=== PATIENT | male | born 1955 | race Caucasian/White ===

== ENCOUNTER → 2018-05-29 09:45 | Outpatient (REF) | payer BC, SELFPAY | LOC: LAB 09:45 | PROVIDERS: Visit Provider Emergency Medicine | DX: J02.9 Acute pharyngitis, unspecified (principal) ==

== ENCOUNTER → 2020-05-03 11:06 | Outpatient (CLI) | payer OTHER, SELFPAY ==
[2020-05-03 12:02] LABS: Chloride 102 mmol/L (98-107)
[2020-05-03 12:03] LABS: Sodium 141 mmol/L (136-145)
[2020-05-03 12:05] LABS: Alanine Aminotransferase 43 U/L (12-78); Aspartate Amino Transferase 36 U/L (17-59); Blood Urea Nitrogen 14 mg/dl (9-20); Estimated Glomerular Filt Rate 75 ml/min (>60); GFR (African American) 90 ML/MIN (>60)
[2020-05-03 12:06] LABS: Albumin Level 4.5 g/dl (3.5-5.0); Albumin/Globulin Ratio 1.8 (1.1-1.8); Alkaline Phosphatase 69 U/L (38-126); Bilirubin,Total 1.7 mg/dl (0.2-1.3); Calcium 9.9 mg/dl (8.4-10.2); Carbon Dioxide 29 mmol/L (22.0-30.0); Globulin 2.5 g/dL (1.3-3.2); Glucose 128 mg/dl (74-100); Magnesium 1.9 mg/dl (1.6-2.3)
== END ==
PROVIDERS: Visit Provider Physician Assistant
DX: I10 Essential (primary) hypertension (principal)
CPT/HCPCS: 36415; 80053; 83735

== ENCOUNTER 2021-05-02 10:32 | Emergency (ER) | payer OTHER, SELFPAY ==
[2021-05-02 11:20] VITALS: BP 188/93; PULSE 72; RESP 19; TEMP 36.8; O2SAT 100; BMI 40.1
--- NOTE | 2021-05-02 11:45 | HMH.EDUTC ---
[facility] [place]ression: Encounter for laboratory testing for COVID-19 virus Disposition: Home, Self-Care Condition on Discharge: Good Instructions: DI for COVID-19 (Suspected or Confirmed ), Coronavirus Disease 2019, Preventing the Spread of Coronavirus Discharge Instructions Additional Instructions: *Monitor Temp, Over the counter Motrin or Tylenol as directed/as needed Tylenol every 4 hours and Motrin every 6 hours (as long as your family doctor has told you that you can take it) for fever or pain. and straight to ER if unable to lower temp less than 101.0 after medication given *Flonase 2 sprays in each nostril daily but be aware that it may take 2-3 days before you notice improvement Follow up IMMEDIATELY for new or worsening symptoms or no Noticeable improvement over the next 48-72 hours. 911 for difficulty breathing or swallowing You were tested for today for COVID19 your test result should be back in the next 24-48 hours, you may call to the [facility] to see if your test results are back in the next 48 hours [phone] [facility] hours are 9am-9pm You was given a handout with instructions for Self Quarantine and Self isolation for while you wait on test results and what to do if they are positive If you are positive the Health Dept will be contacting you also Make sure to take your Vitamins Vit. C Vit D and Zinc if you can take them Prescriptions: Fluticasone Propionate [Flonase 50mcg nasal spray 16gm] 1 spr NS DAILY #1 ml Transmission Status: Pending to [id number] Referrals: Provider,Referral, [Primary Care Provider] - As needed Time of Disposition: 11:47 Medical Decision Making - Nick Inquiry Pt receiving controlled substance: No Nick was queried for this patient: No Vital Signs: 05/02/21 11:20 Temperature 98.3 F Temperature Source Oral Pulse Rate [Right Brachial] 72 Respiratory Rate 19 Blood Pressure [Right Arm] 188/93 H Blood Pressure Mean [Right Arm] 124 Blood Pressure Source [Right Arm] Automatic Cuff Blood Pressure Position [Right Arm] Sitting 02 Sat by Pulse Oximetry 100 Oxygen Delivery Method Room Air Orders (Tests/Meds): ORDERS Category Date Time Status Covid-19 Nasal PCR ([facility]) Routine Lab 05/02/21 11:23 Received Medical Decision Narrative: Patient states that he has HTN 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 by RN): PATIENT STATES HE WOKE UP AROUND 0300 THIS MORNING FEELING BAD AND HAD A LOW-GRADE FEVER. REQUESTING COVID TEST. NO KNOWN EXPOSURE HEENT Symptoms (Recalled from RN notes): No Resp Symptoms (Recalled from RN notes): No Skin Symptoms (Recalled from RN notes): No MS Symptoms (Recalled from RN notes): No Functional Status (Recalled from RN notes): WNL - History of Present Illness Provider Complaint: Patient states that he hasnt been around anyone that he is aware of with COVID State that he woke up this morning having low grade fever and bodyaches States that he is feeling a little better now but wanted to come in and get tested for COVID due to symptoms - Related Data Home Medications Medication Instructions Recorded Confirmed amlodipine 10 mg tablet PO 60 Days #60 tab 05/28/18 10/28/19 losartan 100 mg tablet PO 90 Days #90 tab 05/28/18 10/28/19 aspirin 81 mg chewable tablet 81 mg PO DAILY 10/06/18 10/28/19 coenzyme Q10 10 mg capsule 10 mg PO TID 12/09/18 10/28/19 metoprolol tartrate 50 mg tablet PO BID 90 Days #270 tab 10/28/19 10/28/19 Previous Rx's Medication Instructions Recorded Fluticasone Propionate [Flonase 1 spr NS DAILY #1 ml 05/02/21 50mcg nasal spray 16gm] Allergies Allergy/AdvReac Type Severit
[2021-05-02 11:49] VITALS: BP 188/93; PULSE 72; RESP 19; TEMP 36.8; O2SAT 100
== END 2021-05-02 11:55 | disposition home or self-care (01) ==
PROVIDERS: Emergency Provider Nurse Practitioner
DX: Z20.822 Contact with and (suspected) exposure to COVID-19 (principal); I10 Essential (primary) hypertension; Z79.899 Other long term (current) drug therapy; I48.0 Paroxysmal atrial fibrillation
CPT/HCPCS: 99202; G0463; U0003

== ENCOUNTER 2021-10-01 10:01 | Emergency (ER) | payer MEDICARE, SELFPAY ==
[2021-10-01 11:41] VITALS: BP 155/91; PULSE 69; RESP 18; TEMP 36.8; O2SAT 97; BMI 39.9
--- NOTE | 2021-10-01 11:46 | HMH.EDUTC ---
[facility] [place] Clinical Impression: Viral syndrome, Bronchitis Disposition: Home, Self-Care Condition on Discharge: Good Instructions: Acute Bronchitis, DI for Acute Bronchitis, DI for Viral Syndrome, DI for COVID-19 (Suspected or Confirmed ), Preventing the Spread of Coronavirus Discharge Instructions Additional Instructions: Drink plenty of fluids. Take tylenol or ibuprofen for pain or fever. Take the medications as directed. Follow up with your regular doctor. GO TO THE ER FOR ANY WORSENING SYMPTOMS Quarantine until you know the results of your covid-19 test. Notify your school or workplace of your results and follow their instructions regarding return to work/school. The cough medication (promethazine dm) will make you drowsy, so don't drive or operate heavy machinery after taking it. Prescriptions: Promethazine/Dextromethorphan [Promethazine-Dm Syrup] 5 ml PO Q6HP PRN #240 ml PRN Reason: Cough Transmission Status: Received by [facility] methylPREDNISolone [Medrol] 4 mg PO DIRECTED 6 Days #21 packet Transmission Status: Received by [facility] Azithromycin [Z-Ken 250mg Tab*] 250 mg PO UD DOSE PK #6 tab Transmission Status: Received by [facility] Referrals: Provider,Referral, [Primary Care Provider] - Time of Disposition: 12:28 Medical Decision Making - Medical Records Medical records reviewed: No: I reviewed the patient's medical records. - Nick Inquiry Pt receiving controlled substance: No Vital Signs: 10/01/21 11:41 10/01/21 12:34 Temperature 98.3 F 98.3 F Temperature Source Oral Pulse Rate 69 Pulse Rate [Left] 69 Respiratory Rate 18 18 Blood Pressure 155/91 H Blood Pressure [Right Arm] 155/91 H Blood Pressure Mean [Right Arm] 112 02 Sat by Pulse Oximetry 97 - Lab Data Lab results reviewed: Yes: I reviewed the patient's lab results. Lab Results 10/01/21 11:44: Influenza Type A Ag Negative, Influenza Type B Ag Negative [facility] [place] - General Stated complaint: fever, cough Time Seen by Provider: 10/01/21 11:46 - History of Present Illness Provider Complaint: He states that the has felt bad for the past 2 days. He has been running a low grade fever and had a nonproductive cough. He denies any body aches. He denies any history of asthma, copd or other lung disease. He has been fully vaccinated against covid-19. He has had a flu shot also. - Related Data Home Medications Medication Instructions Recorded Confirmed amlodipine 10 mg tablet PO 60 Days #60 tab 05/28/18 10/28/19 losartan 100 mg tablet PO 90 Days #90 tab 05/28/18 10/28/19 aspirin 81 mg chewable tablet 81 mg PO DAILY 10/06/18 10/28/19 coenzyme Q10 10 mg capsule 10 mg PO TID 12/09/18 10/28/19 metoprolol tartrate 50 mg tablet PO BID 90 Days #270 tab 10/28/19 10/28/19 Previous Rx's Medication Instructions Recorded Fluticasone Propionate [Flonase 1 spr NS DAILY #1 ml 05/02/21 50mcg nasal spray 16gm] Azithromycin [Z-Ken 250mg Tab*] 250 mg PO UD DOSE PK #6 tab 10/01/21 Promethazine/Dextromethorphan 5 ml PO Q6HP PRN #240 ml 10/01/21 [Promethazine-Dm Syrup] methylPREDNISolone [Medrol] 4 mg PO DIRECTED 6 Days #21 10/01/21 packet Allergies Allergy/AdvReac Type Severity Reaction Status Date / Time No Known Allergies Allergy Verified 10/28/19 10:51 [facility] History - Hepatitis A Screen Attestation statement:: This patient has been screened for Hepatitis A risk factors. I have reviewed the patient's past medical history: Yes Medical History: Reports:: Atrial Fibrillation, Hypertension Other Surgeries: Yes: Appendectomy Amputation: No Fractures: No Comment: cardioversion - Social History Smoking Status: Never smoker Alcohol Intake: never Substance Use Type: denies use Occupational Status: other Housing: house Household Members: family Family Hx:: Hypertension, Diabetes, Coronary Artery Disease ROS Obtained: Yes All systems rev
[2021-10-01 12:34] VITALS: BP 155/91; PULSE 69; RESP 18; TEMP 36.8
[2021-10-01 19:04] LABS: UTC Influenza A Antigen Negative (Negative); UTC Influenza B Antigen Negative (Negative)
[2021-10-04 06:59] LABS: Strep Scrn Group A (Rapid) Negative (Negative)
== END 2021-10-01 12:36 | disposition home or self-care (01) ==
PROVIDERS: Emergency Provider Nurse Practitioner Family
DX: U07.1 COVID-19 (principal); J20.9 Acute bronchitis, unspecified; I48.0 Paroxysmal atrial fibrillation; I10 Essential (primary) hypertension
CPT/HCPCS: G0463; 87430; 87804; 99203; C9803; U0003; U0005

== ENCOUNTER 2021-10-15 08:59 | Emergency (ER) | payer MEDICARE, SELFPAY ==
[2021-10-15 09:12] VITALS: BP 161/96; PULSE 69; RESP 16; TEMP 36.9; O2SAT 97; BMI 40.1
--- NOTE | 2021-10-15 09:25 | HMH.EDUTC ---
[facility] [place] Disposition Clinical Impression: Pharyngitis Qualifiers: Pharyngitis/tonsillitis etiology: unspecified etiology Qualified Code(s): J02.9 - Acute pharyngitis, unspecified Disposition: Home, Self-Care Condition on Discharge: Good Instructions: Sore Throat, DI for Pharyngitis/Tonsillopharyngitis -- Adult Additional Instructions: Drink plenty of fluids. Take tylenol or ibuprofen for pain or fever. Take the medications as directed. Follow up with your regular doctor. GO TO THE ER FOR ANY WORSENING SYMPTOMS The cough medication (promethazine dm) will make you drowsy, so don't drive or operate heavy machinery after taking it. I prescribed it just in case you start having a cough that irritates your throat worse than it already is. Prescriptions: Promethazine/Dextromethorphan [Promethazine-Dm Syrup] 5 ml PO Q6HP PRN #240 ml PRN Reason: Cough Transmission Status: Received by [facility] Cefdinir [Omnicef 300mg Capsule] 300 mg PO BID #20 cap Transmission Status: Received by [facility] Triamcinolone Acetonide 1 applicatio TP TIDP PRN 7 Days #1 gm PRN Reason: Itching Transmission Status: Pending to [facility] Referrals: Provider,Referral, MD [Primary Care Provider] - Time of Disposition: 10:11 Medical Decision Making - Medical Records Medical records reviewed: No: I reviewed the patient's medical records. - Nick Inquiry Pt receiving controlled substance: No Vital Signs: 10/15/21 09:12 10/15/21 09:54 Temperature 98.5 F 98.5 F Temperature Source Oral Pulse Rate 69 Pulse Rate [Left] 69 Respiratory Rate 16 16 Blood Pressure 161/96 H Blood Pressure [Right Arm] 161/96 H Blood Pressure Mean [Right Arm] 117 02 Sat by Pulse Oximetry 97 - Lab Data Lab results reviewed: Yes: I reviewed the patient's lab results. Lab Results 10/15/21 09:17: Group A Strep Rapid Negative Orders (Tests/Meds): ED MEDICATIONS Discontinued Medications Generic Name Dose Route Start Last Admin Trade Name Freq PRN Reason Stop Dose Admin Ceftriaxone Sodium 1 gm 10/15/21 10:08 10/15/21 10:16 Ceftriaxone 1gm Vial IM 10/15/21 10:09 1 gm ONCE ONE Administration Lidocaine HCl 0 ml 10/15/21 10:08 10/15/21 10:15 Lidocaine 1% 5ml Pf Vial IM 10/15/21 10:09 2 ml ONCE ONE Administration Methylprednisolone Sodium Succinate 125 mg 10/15/21 10:08 10/15/21 10:15 Methylprednisolone Sod Succ 125mg Vial IM 10/15/21 10:09 125 mg ONCE ONE Administration ORDERS Category Date Time Status Covid-19 Nasal PCR ([facility]) Routine Lab 10/15/21 09:17 Received Strep Screen Confirmation Stat Micro 10/15/21 09:17 Received [facility] [place] HPI - General Stated complaint: possible strep Time Seen by Provider: 10/15/21 09:25 Mode of Arrival: Ambulatory Source of Information: Patient Limitations: No Limitations Description of Symptoms (Recalled from Triage Doc. by RN): pt c/o a sore throat and low grade fever since last night. HEENT Symptoms (Recalled from RN notes): Yes (sore throat) Resp Symptoms (Recalled from RN notes): No Skin Symptoms (Recalled from RN notes): No MS Symptoms (Recalled from RN notes): No Functional Status (Recalled from RN notes): wnl - History of Present Illness Provider Complaint: He states that for the past 2 days he has had a worsening sore throat. He was diagnosed with covid-19 on 10/01. He states that he did not get very sick with covid-19 and he was completely better before his current symptoms of sore throat started. He denies any shortness of breath or chest congestion. - Related Data Home Medications Medication Instructions Recorded Confirmed amlodipine 10 mg tablet PO 60 Days #60 tab 05/28/18 10/28/19 losartan 100 mg tablet PO 90 Days #90 tab 05/28/18 10/28/19 aspirin 81 mg chewable tablet 81 mg PO DAILY 10/06/18 10/28/19 coenzyme Q10 10 mg capsule 10 mg PO TID 12/09/18 10/28/19 metoprolol tartrate 50 mg tablet PO BID 9
[2021-10-15 09:49] LABS: Strep Scrn Group A (Rapid) Negative (Negative)
[2021-10-15 09:54] VITALS: BP 161/96; PULSE 69; RESP 16; TEMP 36.9
== END 2021-10-15 10:46 | disposition home or self-care (01) ==
PROVIDERS: Emergency Provider Nurse Practitioner Family
DX: U07.1 COVID-19 (principal); J02.9 Acute pharyngitis, unspecified; I10 Essential (primary) hypertension; I48.0 Paroxysmal atrial fibrillation
CPT/HCPCS: G0463; 87430; 96372; 99202; C9803; J0696; U0003; U0005

== ENCOUNTER 2022-05-02 17:28 | Emergency (ER) | payer MEDICARE, SELFPAY ==
--- NOTE | 2022-05-02 17:48 | XR_ITS ---
PROCEDURE INFORMATION: Exam: XR Left Ribs with PA Chest Exam date and time: 05/02/2022 5:50 PM Age: 66 years old Clinical indication: Injury or trauma; Fall; Rib area, left side; Blunt trauma TECHNIQUE: Imaging protocol: Radiologic exam of the Left ribs with PA chest. Views: 3 views COMPARISON: No relevant prior studies available. FINDINGS: Lungs: Pulmonary vessels do not appear congested. No acute pulmonary findings. No pulmonary consolidation. Lung volumes within normal limits. Pleural spaces: Unremarkable. No significant pleural effusion. No pneumothorax. Heart/Mediastinum: Upper normal sized cardiac silhouette. Bones/joints: Chronic appearing deformities of the left 3rd , 6th and 7th ribs, consistent with old healed fractures. Also some minimal deformities of 4th and 5th ribs which are likely old healed injuries. Tiny radiolucency through the tip of the left 10th rib which may be acute injury. Prominent multilevel degenerative disc disease and spondylosis. IMPRESSION: 1. Old healed injuries of left 3rd through 7th ribs. A small linear radiolucency through the tip of the left 10th rib which could be an acute fracture, correlate for point tenderness. 2. No acute cardiopulmonary findings. No consolidation, pleural effusion or pneumothorax. 3. Additional nonemergency and chronic findings as above.
[2022-05-02 17:50] VITALS: BP 141/90; PULSE 86; RESP 19; TEMP 36.9; O2SAT 97; BMI 40.6
--- NOTE | 2022-05-02 18:07 | HMH.EDUTC ---
[facility] [place] Disposition Clinical Impression: Closed rib fracture Qualifiers: Encounter type: initial encounter Rib fracture type: single rib Laterality: left Qualified Code(s): S22.32XA - Fracture of one rib, left side, initial encounter for closed fracture Disposition: Home, Self-Care Condition on Discharge: Good Instructions: DI for Rib Fracture Additional Instructions: follow up with pcp return or be seen in ed if symptoms worsen or do not improve rest Referrals: Provider,Referral, MD [Primary Care Provider] - Time of Disposition: 18:59 Medical Decision Making - Nick Inquiry Pt receiving controlled substance: No Vital Signs: 05/02/22 17:50 05/02/22 18:55 Temperature 98.4 F 98.4 F Temperature Source Oral Pulse Rate 86 Pulse Rate [Right Brachial] 86 Respiratory Rate 19 19 Blood Pressure 141/90 H Blood Pressure [Right Arm] 141/90 H Blood Pressure Mean [Right Arm] 107 Blood Pressure Source [Right Arm] Automatic Cuff Blood Pressure Position [Right Arm] Sitting 02 Sat by Pulse Oximetry 97 Oxygen Delivery Method Room Air [facility] [place] HPI - General Chief complaint: Urgent Treatment Center Stated complaint: AO05/02 fall rib pain Time Seen by Provider: 05/02/22 18:07 Mode of Arrival: Ambulatory Source of Information: Patient Limitations: No Limitations Description of Symptoms (Recalled from Triage Doc. by RN): PATIENT STATES HE FELL EARLIER TODAY AND C/O LEFT RIB PAIN HEENT Symptoms (Recalled from RN notes): No Resp Symptoms (Recalled from RN notes): No Skin Symptoms (Recalled from RN notes): No MS Symptoms (Recalled from RN notes): Yes Functional Status (Recalled from RN notes): WNL - History of Present Illness Provider Complaint: 66 yr old male presnets for left rib pain s/p fall. pt states he was putting up tobacco and slip and fell hittting rib area. states he finished and then put up hay but pain did not improve - Related Data Home Medications Medication Instructions Recorded Confirmed amlodipine 10 mg tablet PO 60 Days #60 tab 05/28/18 10/28/19 losartan 100 mg tablet PO 90 Days #90 tab 05/28/18 10/28/19 aspirin 81 mg chewable tablet 81 mg PO DAILY 10/06/18 10/28/19 coenzyme Q10 10 mg capsule 10 mg PO TID 12/09/18 10/28/19 metoprolol tartrate 50 mg tablet PO BID 90 Days #270 tab 10/28/19 10/28/19 Previous Rx's Medication Instructions Recorded Fluticasone Propionate [Flonase 1 spr NS DAILY #1 ml 05/02/21 50mcg nasal spray 16gm] Azithromycin [Z-Ken 250mg Tab*] 250 mg PO UD DOSE PK #6 tab 10/01/21 Promethazine/Dextromethorphan 5 ml PO Q6HP PRN #240 ml 10/01/21 [Promethazine-Dm Syrup] methylPREDNISolone [Medrol] 4 mg PO DIRECTED 6 Days #21 10/01/21 packet Cefdinir [Omnicef 300mg Capsule] 300 mg PO BID #20 cap 10/15/21 Promethazine/Dextromethorphan 5 ml PO Q6HP PRN #240 ml 10/15/21 [Promethazine-Dm Syrup] Triamcinolone Acetonide 1 applicatio TP TIDP PRN 7 Days #1 10/15/21 gm Allergies Allergy/AdvReac Type Severity Reaction Status Date / Time No Known Allergies Allergy Verified 10/28/19 10:51 - Worker's Comp Is this a Worker's Comp case?: No [facility] History - Hepatitis A Screen Attestation statement:: This patient has been screened for Hepatitis A risk factors. I have reviewed the patient's past medical history: Yes Medical History: Reports:: Atrial Fibrillation, Hypertension Other Surgeries: Yes: Appendectomy Amputation: No Fractures: No Comment: cardioversion - Social History Smoking Status: Never smoker Alcohol Intake: never Substance Use Type: denies use Occupational Status: other Housing: house Household Members: family Family Hx:: Hypertension, Diabetes, Coronary Artery Disease ROS Obtained: Yes Systems reviewed as appropriate & no additional complaints - Constitutional Constitutional: Reports system reviewed and no additional complaints, except as thuu - Eyes Eyes: Reports system reviewed and no additional complaints, except as Jaida bills
[2022-05-02 18:55] VITALS: BP 141/90; PULSE 86; RESP 19; TEMP 36.9; O2SAT 97
== END 2022-05-02 19:03 | disposition home or self-care (01) ==
PROVIDERS: Emergency Provider Nurse Practitioner Family
DX: S22.32XA Fracture of one rib, left side, initial encounter for closed fracture (principal); W19.XXXA Unspecified fall, initial encounter
CPT/HCPCS: 71101; 99212; G0463

== ENCOUNTER 2022-12-03 11:16 | Emergency (ER) | payer MEDICARE, SELFPAY ==
[2022-12-03 11:31] VITALS: BP 175/99; PULSE 75; RESP 18; TEMP 36.7; O2SAT 96; BMI 41.3
--- NOTE | 2022-12-03 12:02 | EXP.UTC ---
Discharge Plan Disposition Patient Disposition: Home, Self-Care Condition: Good Prescriptions Prescriptions: New cefdinir 300 mg capsule 300 mg PO BID Qty: 20 0RF No Action amlodipine 10 mg tablet PO 60 Days Qty: 60 losartan 100 mg tablet PO 90 Days Qty: 90 metoprolol tartrate 50 mg tablet PO BID 90 Days Qty: 270 aspirin 81 mg tablet,chewable 81 mg PO DAILY coenzyme Q10 [Co Q-10] 10 mg capsule 10 mg PO TID fluticasone propionate 120 SPR/BOT bottle 1 spr NS DAILY Qty: 1 0RF Rx Instructions: each nostril daily promethazine-DM 120 ML syrup 5 ml PO Q6HP PRN (Reason: Cough) Qty: 240 0RF azithromycin 250 MG tablet 250 mg PO UD DOSE PK Qty: 6 0RF Rx Instructions: Take two (2) tablets today, then one (1) tablet days #2 thru #5 methylprednisolone 4 MG tablets,dose pack 4 mg PO DIRECTED 6 Days Qty: 21 0RF promethazine-DM 120 ML syrup 5 ml PO Q6HP PRN (Reason: Cough) Qty: 240 0RF cefdinir 300 MG capsule 300 mg PO BID Qty: 20 0RF triamcinolone acetonide 15 GM cream 1 applicatio TP TIDP PRN (Reason: Itching) 7 Days Qty: 1 0RF Rx Instructions: 0.025% Referrals Follow up/Referrals: Provider,Referral, MD [Primary Care Provider] - See instructions Activity Restrictions/Add. Instructions Additional Instructions/Restrictions: *Monitor Temp, Over the counter Motrin or Tylenol as directed/as needed Tylenol every 4 hours and Motrin every 6 hours (as long as your family doctor has told you that you can take it) for fever or pain. and straight to ER if unable to lower temp less than 101.0 after medication given *Warm salt water gargles may help to soothe the throat *Throat Lozenges? *Warm fluids like tea with honey may help to soothe the throat? *Sleep elevated *Humidifier/Vaporizer Your throat swab was sent for culture. Those results are typically sent to your primary care. Be sure to follow up in 2-3 days with your family doctor/primary care physician if no improvement so they can review those result and treat if necessary. If you don?t have a primary care doctor, I recommend you get one but in the mean time, you will have to return to a walk in clinic Follow up IMMEDIATELY for new or worsening symptoms or no Noticeable improvement over the next 48-72 hours. 911 for difficulty breathing or swallowing Clinical Impressions Clinical Impression: Otitis media Stand Alone Forms Stand Alone Forms: Work/School Release Instructions Patient Instructions: Middle Ear Infection, Sore Throat Discharge ED Provider: Keli Garduno [place] HPI General Stated complaint: sore throat Mode of Arrival: Ambulatory Source of Information: Patient Limitations: No Limitations Time Seen by Provider: 12/03/22 12:02 Description of Symptoms (Recalled from Triage Doc. by RN): PT REPORTS SORE THROAT THAT STARTED THIS MORNING, ALSO REPORTS FEVERS OFF AND ON FOR 3 DAYS HEENT Symptoms (Recalled from RN notes): Yes (SORE THROAT) Resp Symptoms (Recalled from RN notes): No Skin Symptoms (Recalled from RN notes): No MS Symptoms (Recalled from RN notes): No Functional Status (Recalled from RN notes): WNL History of Present Illness Provider Complaint: Patient states that he has been having pain and pressure in his ears for several days, fever on and off and this morning he had sore throat and hurts when he swallows and still having pain in his ears Related Data Home Medications Medication Instructions Recorded Confirmed amlodipine 10 mg tablet PO 60 days #60 tabs 05/28/18 10/28/19 losartan 100 mg tablet PO 90 days #90 tabs 05/28/18 10/28/19 aspirin 81 mg chewable tablet 81 mg PO DAILY 10/06/18 10/28/19 coenzyme Q10 10 mg capsule (Co 10 mg PO TID 12/09/18 10/28/19 Q-10) metoprolol tartrate 50 mg tablet PO BID 90 days #270 tabs 10/28/19 10/28/19 Previous Rx's Medication Instructions Recorded fluticasone propionate 50
[2022-12-03 12:19] VITALS: BP 175/99; PULSE 75; RESP 18; TEMP 36.7; O2SAT 96
[2022-12-03 12:33] LABS: UTC Strep Screen (Rapid) Negative (Negative)
== END 2022-12-03 12:32 | disposition home or self-care (01) ==
PROVIDERS: Emergency Provider Nurse Practitioner
DX: H66.91 Otitis media, unspecified, right ear (principal); R50.9 Fever, unspecified; R07.0 Pain in throat
CPT/HCPCS: 87880; 99212; 99214; G0463

== ENCOUNTER 2023-05-23 13:44 | Emergency (ER) | payer MEDICARE, SELFPAY ==
[2023-05-23] VITALS (10 sets, daily range): BP systolic 132–176; BP diastolic 83–105; PULSE 69–93; RESP 16–18; TEMP 36.7–36.8; O2SAT 96–98; BMI 40.1
--- NOTE | 2023-05-23 14:36 | XR_ITS ---
PROCEDURE INFORMATION: Exam: XR Left Knee Exam date and time: 05/23/2023 3:00 PM Age: 67 years old Clinical indication: Swelling, leg or foot; Additional info: Atraumatic swelling and pain TECHNIQUE: Imaging protocol: Radiologic exam of the left knee. Views: 1 or 2 views. Total images: 2 COMPARISON: No relevant prior studies available. FINDINGS: Bones/joints: There are moderate degenerative changes of the knee joint, predominantly involving the medial joint compartment. No evidence of acute fracture or dislocation. Soft tissues: Soft tissues are within normal limits. IMPRESSION: 1. There are moderate degenerative changes of the knee joint, predominantly involving the medial joint compartment. 2. No evidence of acute fracture or dislocation.
--- NOTE | 2023-05-23 14:38 | HMH.EDGENADL ---
Discharge Plan Disposition Patient Disposition: Xfer Short-Term Hosp Chief Complaint: PAIN Prescriptions Prescriptions: No Action amlodipine 10 mg tablet PO 60 Days Qty: 60 losartan 100 mg tablet PO 90 Days Qty: 90 metoprolol tartrate 50 mg tablet PO BID 90 Days Qty: 270 aspirin 81 mg tablet,chewable 81 mg PO DAILY coenzyme Q10 [Co Q-10] 10 mg capsule 10 mg PO TID cefdinir 300 mg capsule 300 mg PO BID Qty: 20 0RF fluticasone propionate 120 SPR/BOT bottle 1 spr NS DAILY Qty: 1 0RF Rx Instructions: each nostril daily promethazine-DM 120 ML syrup 5 ml PO Q6HP PRN (Reason: Cough) Qty: 240 0RF azithromycin 250 MG tablet 250 mg PO UD DOSE PK Qty: 6 0RF Rx Instructions: Take two (2) tablets today, then one (1) tablet days #2 thru #5 methylprednisolone 4 MG tablets,dose pack 4 mg PO DIRECTED 6 Days Qty: 21 0RF promethazine-DM 120 ML syrup 5 ml PO Q6HP PRN (Reason: Cough) Qty: 240 0RF cefdinir 300 MG capsule 300 mg PO BID Qty: 20 0RF triamcinolone acetonide 15 GM cream 1 applicatio TP TIDP PRN (Reason: Itching) 7 Days Qty: 1 0RF Rx Instructions: 0.025% Referrals Follow up/Referrals: Provider,Referral, [Primary Care Provider] - See instructions Clinical Impressions Clinical Impression: Knee swelling, Hyperglycemia Discharge ED Provider: Kamron Cruz General Adult HPI <Rocky Mason MD - Last Filed: 05/23/23 16:35> General Chief complaint: PAIN Stated complaint: left knee pain and swollen Time Seen by Provider: 05/23/23 14:23 Mode of Arrival: Ambulatory Source of Information: Patient Limitations: No Limitations Description of Symptoms (Recalled from ER Triage Doc. by RN): Patient complaint of left knee pain and swelling since yesterday. States that he is worried for a blood clot. Patient reports that he was recently in afib in March and prescribed Eliquis. History of Present Illness HPI narrative: Patient is a 67-year-old with past medical history of atrial fibrillation on Eliquis who presents emergency department for evaluation of atraumatic left knee swelling. Patient was started on Eliquis approximately 1 week ago. When he was working in the garden recently he had atraumatic swelling of his left knee and has since had inability to range it. He is able to get around however has severe pain with any range of motion at the knee. Patient has had intermittent problems with his knee which he attributes to age and physical activity however it has never significantly swollen. He has noticed that it is warmer than the other knee causing him to be concerned. No other acute complaints at this time. Related Data Home Medications Medication Instructions Recorded Confirmed amlodipine 10 mg tablet PO 60 days #60 tabs 05/28/18 10/28/19 losartan 100 mg tablet PO 90 days #90 tabs 05/28/18 10/28/19 aspirin 81 mg chewable tablet 81 mg PO DAILY 10/06/18 10/28/19 coenzyme Q10 10 mg capsule (Co 10 mg PO TID 12/09/18 10/28/19 Q-10) metoprolol tartrate 50 mg tablet PO BID 90 days #270 tabs 10/28/19 10/28/19 Previous Rx's Medication Instructions Recorded fluticasone propionate 50 1 spr NS DAILY #1 mL 05/02/21 mcg/actuation nasal spray,suspension azithromycin 250 mg tablet 250 mg PO UD DOSE PK #6 tabs 10/01/21 methylprednisolone 4 mg tablets in 4 mg PO DIRECTED 6 days #21 10/01/21 a dose pack packets promethazine-DM 6.25 mg-15 mg/5 mL 5 ml PO Q6HP PRN Cough #240 mL 10/01/21 oral syrup cefdinir 300 mg capsule 300 mg PO BID #20 caps 10/15/21 promethazine-DM 6.25 mg-15 mg/5 mL 5 ml PO Q6HP PRN Cough #240 mL 10/15/21 oral syrup triamcinolone acetonide 0.025 % 1 applicatio TP TIDP PRN Itching 7 10/15/21 topical cream days ##1 cefdinir 300 mg capsule 300 mg PO BID #20 caps 12/03/22 Allergies Allergy/AdvReac Type Severity Reaction Status Date / Time No Known Allergies Allergy Verified 10/28/19 10:51
[2023-05-23 15:05] LABS: Basophils # 0.1 K/mm3 (0-0.2); Basophils % 0.4 % (0.1-2.0); Eosinophils # 0.2 K/mm3 (0.0-0.4); Eosinophils % 1.6 % (0.1-12.0); Hematocrit 51.3 % (42.0-52.0); Hemoglobin 16.9 g/dL (14.1-18.0); Lymphocytes # 3.4 K/mm3 (0.7-4.5); Lymphocytes % 26.3 % (10-50); Mean Corpuscular Hemoglobin 30.6 pg (27.0-31.2); Mean Corpuscular Volume 92.7 fl (80-94); Mean Platelet Volume 8.5 fl (7.4-10.4); Monocytes % 7.9 % (1.7-9.3); Neutrophils # 8.3 K/mm3 (1.8-7.8); Neutrophils % 63.8 % (37.0-80.0); Platelet Count 194 K/mm3 (142-424); Red Blood Count 5.53 M/mm3 (4.60-6.20); Red Cell Distribution Width 13.4 % (11.5-17.5)
--- NOTE | 2023-05-23 15:06 | PC.NURSE ---
RAD at BS
[2023-05-23 15:11] LABS: Blood Urea Nitrogen 10 mg/dl (9-20); Calcium 9.2 mg/dl (8.4-10.2); Carbon Dioxide 26 mmol/L (22.0-30.0); Chloride 101 mmol/L (98-107); Creatinine Clearance Estimated 122 mL/min (50-200); Estimated Glomerular Filt Rate 96 ml/min (>60); GFR (African American) 116 ML/MIN (>60); Glucose 239 mg/dl (74-100); Sodium 138 mmol/L (136-145)
[2023-05-23 15:17] LABS: C-Reactive Protein 22.3 mg/L (0-4)
[2023-05-23 15:19] LABS: Anion Gap 14.7 mEq/L (5-15); Potassium 3.7 mmoL/L (3.5-5.1)
[2023-05-23 15:40] LABS: Erythrocyte Sedimentation Rate 5 mm/hr (0-20)
--- NOTE | 2023-05-23 15:54 | PC.NURSE ---
spoke with yon oliva supervisor, states do have orthopedic coverage at this time. Directed me to call [facility]
--- NOTE | 2023-05-23 15:55 | PC.NURSE ---
disconnected from IV meds, no other new complaints Dr. Mason at bedside.
--- NOTE | 2023-05-23 15:56 | PC.NURSE ---
Calling [facility] for possible transfer to [place], [facility], or [place] with orthopedic services d/t possible septic joint.
--- NOTE | 2023-05-23 15:57 | PC.NURSE ---
waiting funeral professional back [facility], states she is going to check with jonny desai
--- NOTE | 2023-05-23 16:12 | PC.NURSE ---
Dr. Mason speaking with Dr. Cedeño with [facility]
--- NOTE | 2023-05-23 16:21 | PC.NURSE ---
rounded on pt. No needs voiced at this time.
--- NOTE | 2023-05-23 16:24 | PC.NURSE ---
Dr. Mason reports he spoke with Dr. Cedeño and then with the ER doctor at [place], [facility] waiting remote control assembler back from ER doctor r/t possible ER to ER transfer
--- NOTE | 2023-05-23 16:25 | PC.NURSE ---
Dr. Mason at BS to update pt on POC
--- NOTE | 2023-05-23 16:45 | PC.NURSE ---
rounded on pt, no patient complaints noted.
--- NOTE | 2023-05-23 16:51 | PC.NURSE ---
ER MD Cruz speaking with Dr. Bliss at [facility]
--- NOTE | 2023-05-23 16:52 | PC.NURSE ---
[facility] states unable to take ER to ER transfers
--- NOTE | 2023-05-23 16:55 | PC.NURSE ---
Spoke with Mary at [facility] bed placement advised that she would call back when she has the hospitalist on the phone
--- NOTE | 2023-05-23 17:25 | PC.NURSE ---
rounded on pt, pt sitting up in chair with leg propped up. Updated pt that KRYSTAL ALEJANDRA is speaking [facility] at this time
--- NOTE | 2023-05-23 17:34 | PC.NURSE ---
Dr. Cruz speaking with Dr. Abraham at
--- NOTE | 2023-05-23 17:43 | PC.NURSE ---
[facility] called back, reports they just got approval from admin for pt to be an inpatient admit since dr. mg (ortho) has agreed to consult on pt. States she has the hospitalist ready to speak with our ER doctor.
--- NOTE | 2023-05-23 17:49 | PC.NURSE ---
Pt accepted at [facility] per hospitalist Dr. Cuadra, transfer center states will call back with bed assignment.
--- NOTE | 2023-05-23 18:39 | PC.NURSE ---
contacted [facility] to check on status of transfer for pt, reports the nurse is working on it now, she is in the pts chart
--- NOTE | 2023-05-23 19:18 | PC.NURSE ---
PC from [facility] transfer [facility] ED doctor on phone with ED doctor @ [facility] re: transfer
--- NOTE | 2023-05-23 19:22 | PC.NURSE ---
Dr Cordero accepted to [place]
--- NOTE | 2023-05-23 22:58 | PC.NURSE ---
spoke with Radha facility operations manager at night at [facility]. Refaxing second copy of the transfer record. first one sent with pt in transit and lost.
== END 2023-05-23 19:33 | disposition short-term general hospital (02) ==
PROVIDERS: Emergency Medicine; Emergency Provider Emergency Medicine
DX: M25.562 Pain in left knee (principal); R22.42 Localized swelling, mass and lump, left lower limb; R73.9 Hyperglycemia, unspecified; I48.91 Unspecified atrial fibrillation; Z79.01 Long term (current) use of anticoagulants
CPT/HCPCS: 73560; 80048; 85025; 85651; 86140; 96374; 99285; J0131

== ENCOUNTER 2023-10-08 15:27 | Emergency (ER) | payer MEDICARE, SELFPAY ==
[2023-10-08 15:45] VITALS: BP 165/81; PULSE 85; RESP 18; TEMP 37.5; O2SAT 96; BMI 25.4
--- NOTE | 2023-10-08 15:46 | ED_ITS ---
Discharge Plan Disposition Patient Disposition: Home, Self-Care Condition: Good Prescriptions Prescriptions: New amoxicillin [amoxicillin] 875 mg tablet 875 mg PO Q12H Qty: 20 0RF benzonatate [benzonatate] 100 mg capsule 100 mg PO TIDP PRN (Reason: Cough) Qty: 30 0RF No Action amlodipine 10 mg tablet 10 mg PO DAILY 60 Days Qty: 60 losartan 100 mg tablet 100 mg PO DAILY 90 Days Qty: 90 metoprolol tartrate 50 mg tablet 50 mg PO BID 90 Days Qty: 270 aspirin 81 mg tablet,chewable 81 mg PO DAILY coenzyme Q10 [Co Q-10] 10 mg capsule 10 mg PO TID fluticasone propionate 120 SPR/BOT bottle 1 spr NS DAILY Qty: 1 0RF Rx Instructions: each nostril daily carvedilol 25 mg tablet 25 mg PO BID Patient Comments: TAKE 1 TABLET BY MOUTH TWICE DAILY flecainide 100 mg tablet 100 mg PO BID Patient Comments: TAKE 1 TABLET BY MOUTH TWICE DAILY Eliquis 5 mg tablet 5 mg PO DAILY Referrals Follow up/Referrals: Brittnee Espinal [Primary Care Provider] - See instructions Activity Restrictions/Add. Instructions Additional Instructions/Restrictions: Drink plenty of fluids. Take tylenol or ibuprofen for pain or fever. Take the medications as directed. Follow up with your regular doctor. GO TO THE ER FOR ANY WORSENING SYMPTOMS Clinical Impressions Clinical Impression: Sinusitis, Acute viral syndrome Instructions Patient Instructions: Sinusitis, DI for Sinusitis Discharge ED Provider: Rafael Childress [facility] General Stated complaint: cough, fever Time Seen by Provider: 10/08/23 15:45 History of Present Illness Provider Complaint: He states that he has had cough, chest congestion and sinus congestion for the past 2 days. He denies fever, chills, and body aches. Related Data Home Medications Medication Instructions Recorded Confirmed amlodipine 10 mg tablet 10 mg PO DAILY 60 days #60 tabs 05/28/18 10/28/19 losartan 100 mg tablet 100 mg PO DAILY 90 days #90 tabs 05/28/18 10/08/23 aspirin 81 mg chewable tablet 81 mg PO DAILY 10/06/18 10/08/23 coenzyme Q10 10 mg capsule (Co 10 mg PO TID 12/09/18 10/08/23 Q-10) metoprolol tartrate 50 mg tablet 50 mg PO BID 90 days #270 tabs 10/28/19 10/08/23 apixaban 5 mg tablet (Eliquis) 5 mg PO DAILY 10/08/23 10/08/23 carvedilol 25 mg tablet 25 mg PO BID 10/08/23 10/08/23 flecainide 100 mg tablet 100 mg PO BID 10/08/23 10/08/23 Previous Rx's Medication Instructions Recorded fluticasone propionate 50 1 spr NS DAILY #1 mL 05/02/21 mcg/actuation nasal spray,suspension amoxicillin 875 mg tablet 875 mg PO Q12H #20 tabs 10/08/23 benzonatate 100 mg capsule 100 mg PO TIDP PRN Cough #30 caps 10/08/23 Allergies Allergy/AdvReac Type Severity Reaction Status Date / Time No Known Allergies Allergy Verified 10/08/23 15:53 [facility] Disclaimer: The information contained in this section may have been updated after the patient was seen, as this information can be updated by other users. Social History Smoking Status: Never smoker alcohol intake: never substance use type: denies use current occupational status: other Travel in the last 8 weeks: None household members: family housing: house ROS Obtained: Yes All systems reviewed & no additional complaints except as documented Constitutional Constitutional: Reports poor appetite Eyes Eyes: Reports system reviewed and no additional complaints, except as documented ENT Ears, Nose, Mouth, and Throat: Reports as per HPI Cardiovascular Cardiovascular: Reports system reviewed and no additional complaints, except as documented and Denies chest pain Respiratory Respiratory: Denies shortness of breath, Reports chest congestion, Reports cough, Denies stridor and Denies wheezing Gastrointestinal Gastrointestingal: Reports system reviewed and no additional complaints, except as documented; Denies abdominal pain, diarrhea or vomiting Musculoskeletal Musculoskeletal: Reports system reviewed and no additional complaints, except as documented and Denies arthralgias Integumentary/Breasts Skin/Breast: Reports system reviewed and no additional complaints, except as documented and Denies rash Neurologic Neurologic: Denies paresthesias Allergic/Immunologic Allergic/Immunologic: Denies wheezing Physical Exam General General appearance: alert and in no apparent distress Eye Eye exam: Present normal appearance, PERRL and EOMI ENT ENT exam: Present mucous membranes moist and normal external ear exam Expanded ENT Exam External ear exam: Present normal external inspection TM/Canal exam: Bilateral TM: erythema and bulging Nose exam: Absent sinus tenderness Nasal speculum exam: Bilateral: normal Mouth exam: Present normal external inspection; Absent drooling Teeth exam: Present normal inspection Throat exam: Present tonsillar erythema and tonsillomegaly Neck Neck exam: Present normal inspection, full ROM and trachea midline; Absent tenderness, lymphadenopathy or thyromegaly Chest Chest inspection: Present normal inspection and symmetric chest wall rise; Absent tenderness or rash Respiratory Respiratory exam: Present normal lung sounds bilaterally; Absent respiratory distress, wheezes, stridor or accessory muscle use Cardiovascular Cardiovascular exam: Present regular rate, normal rhythm and normal heart sounds Abdominal Exam Abdominal exam: Present soft; Absent distention, tenderness, guarding, rebound or rigidity Extremities Exam Extremities exam: Present normal inspection, full ROM and normal capillary refill; Absent tenderness or calf tenderness Back Exam Back exam: Present normal inspection and full ROM; Absent tenderness Neurological Exam Neurological exam: Present alert and oriented X3 Psychiatric Psychiatric exam: Present normal affect and normal mood Skin Skin exam: Present warm, dry, intact and normal color Lymphatic Lymphatic Findings: no adenopathy Medical Decision Making Medical Records Medical records reviewed: No I reviewed the patient's medical records. Nick Inquiry Pt receiving controlled substance: No Lab Data Lab results reviewed: Yes I reviewed the patient's lab results.
[2023-10-08 16:04] LABS: UTC Influenza A Antigen Negative (Negative)
[2023-10-08 16:05] LABS: UTC Influenza B Antigen Negative (Negative)
[2023-10-08 16:31] VITALS: BP 165/81; PULSE 85; RESP 18; TEMP 37.5; O2SAT 96
[2023-10-08 17:03] LABS: Adenovirus,PCR Not Detected (NotDetected); Coronavirus 19, PCR Not Detected (NotDetected); Coronavirus 229E Not Detected (NotDetected); Coronavirus NL63 Not Detected (NotDetected); Coronavirus OC43 Not Detected (NotDetected); Coronovirus HKU1,PCR Not Detected (NotDetected); Human Metapneumovirus Not Detected (NotDetected); Influenza A, PCR Not Detected (NotDetected); Influenza AH1, 2009 Not Detected (NotDetected); Influenza AH1, PCR Not Detected (NotDetected); Influenza B, PCR Not Detected (NotDetected); Parainfluenza 1, PCR Not Detected (NotDetected); Parainfluenza 2, PCR Not Detected (NotDetected); Parainfluenza 3, PCR Not Detected (NotDetected); Parainfluenza 4, PCR Not Detected (NotDetected); Respiratory Syncytial Virus Not Detected (NotDetected); Rhinovirus/Enterovirus Not Detected (NotDetected)
[2023-10-09 08:27] LABS: Influenza AH3,PCR Detected (NotDetected)
== END 2023-10-08 16:31 | disposition home or self-care (01) ==
PROVIDERS: Emergency Provider Nurse Practitioner Family; PCP Nurse Practitioner Adult Health
DX: J10.1 Influenza due to other identified influenza virus with other respiratory manifestations (principal); J01.90 Acute sinusitis, unspecified; R05.9 Cough, unspecified; R09.89 Other specified symptoms and signs involving the circulatory and respiratory systems; R09.81 Nasal congestion
CPT/HCPCS: 87632; 87635; 87804; 99212; 99214; G0463

== ENCOUNTER 2024-01-08 20:34 | Emergency (ER) | payer MEDICARE, SELFPAY ==
[2024-01-08 20:36] VITALS: BP 170/113; PULSE 79; RESP 20; TEMP 36.8; O2SAT 98; BMI 40.6
--- NOTE | 2024-01-08 20:51 | ED_ITS ---
Discharge Plan Disposition Patient Disposition: Home, Self-Care Condition: Good Prescriptions Prescriptions: New lidocaine [Lidoderm] 5 % adhesive patch,medicated 1 patch topical DAILY Qty: 15 0RF Rx Instructions: leave on most painful area for up to 12 hrs methocarbamol 750 mg tablet 750 mg PO Q8H PRN (Reason: pain) Qty: 20 0RF oxycodone 5 mg tablet 5 mg PO Q8H PRN (Reason: pain) Qty: 10 0RF No Action amlodipine 10 mg tablet 10 mg PO DAILY 60 Days Qty: 60 losartan 100 mg tablet 100 mg PO DAILY 90 Days Qty: 90 metoprolol tartrate 50 mg tablet 50 mg PO BID 90 Days Qty: 270 aspirin 81 mg tablet,chewable 81 mg PO DAILY coenzyme Q10 [Co Q-10] 10 mg capsule 10 mg PO TID fluticasone propionate 120 SPR/BOT bottle 1 spr NS DAILY Qty: 1 0RF Rx Instructions: each nostril daily carvedilol 25 mg tablet 25 mg PO BID Patient Comments: TAKE 1 TABLET BY MOUTH TWICE DAILY flecainide 100 mg tablet 100 mg PO BID Patient Comments: TAKE 1 TABLET BY MOUTH TWICE DAILY Eliquis 5 mg tablet 5 mg PO DAILY amoxicillin [amoxicillin] 875 mg tablet 875 mg PO Q12H Qty: 20 0RF benzonatate [benzonatate] 100 mg capsule 100 mg PO TIDP PRN (Reason: Cough) Qty: 30 0RF Referrals Follow up/Referrals: Brittnee Espinal [Primary Care Provider] - See instructions Activity Restrictions/Add. Instructions Additional Instructions/Restrictions: You were evaluated in the emergency department today. Please use the incentive spirometer provided to you every 6 hours while awake. agricultural and forestry supervisor your prescriptions at the pharmacy and take as needed for pain. Do not drive or operate heavy machinery while taking narcotic pain medication. You may also take Tylenol in addition to these medications every 4-6 hours as needed for pain. Follow-up closely with your primary care provider. Return to the emergency department for new or worsening symptoms. Clinical Impressions Clinical Impression: Right rib fracture Instructions Patient Instructions: DI for Rib Fracture Discharge ED Provider: Sharron Munguia General Adult HPI General Chief complaint: Fall Stated complaint: AO 01/07/24 1900 Injury Right rib injury Time Seen by Provider: 01/08/24 20:43 Mode of Arrival: Ambulatory Source of Information: Patient Limitations: No Limitations Description of Symptoms (Recalled from ER Triage Doc. by RN): 68 M presents from home with right anterior chest wall pain after having a ground level fall while playing wiffle ball with his grandkids. This fall occurred approximately 24 hours ago. Patient states he was running and tripped. Denies hitting his head. Patient reports history of broken ribs and this pain is similar. He has taken Tylenol PO with minimal to no relief. NAD on arrival. Lung kay clear and equal. History of Present Illness HPI narrative: This patient is a 68-year-old male with a history of atrial fibrillation on Eliquis, hypertension, hyperlipidemia, and CAD presenting to the emergency department for evaluation with concern for fall. Patient reports that yesterday, he had a fall while playing with a ball with his grandkids. He fell onto his right chest wall and has been having right-sided chest pain since. He notes it feels similar to prior rib fractures that he had in the past. He did not hit his head or lose consciousness and denies any other concerns or complaints at this time. He took Tylenol without good improvement. Related Data Home Medications Medication Instructions Recorded Confirmed amlodipine 10 mg tablet 10 mg PO DAILY 60 days #60 tabs 05/28/18 10/28/19 losartan 100 mg tablet 100 mg PO DAILY 90 days #90 tabs 05/28/18 10/08/23 aspirin 81 mg chewable tablet 81 mg PO DAILY 10/06/18 10/08/23 coenzyme Q10 10 mg capsule (Co 10 mg PO TID 12/09/18 10/08/23 Q-10) metoprolol tartrate 50 mg tablet 50 mg PO BID 90 days #270 tabs 10/28/19 10/08/23 apixaban 5 mg tablet (Eliquis) 5 mg PO DAILY 10/08/23 10/08/23 carvedilol 25 mg tablet 25 mg PO BID 10/08/23 10/08/23 flecainide 100 mg tablet 100 mg PO BID 10/08/23 10/08/23 Previous Rx's Medication Instructions Recorded fluticasone propionate 50 1 spr NS DAILY #1 mL 05/02/21 mcg/actuation nasal spray,suspension amoxicillin 875 mg tablet 875 mg PO Q12H #20 tabs 10/08/23 benzonatate 100 mg capsule 100 mg PO TIDP PRN Cough #30 caps 10/08/23 lidocaine 5 % topical patch 1 patch topical DAILY #15 ea 01/08/24 (Lidoderm) methocarbamol 750 mg tablet 750 mg PO Q8H PRN pain #20 tabs 01/08/24 oxycodone 5 mg tablet 5 mg PO Q8H PRN pain #10 tabs 01/08/24 Allergies Allergy/AdvReac Type Severity Reaction Status Date / Time No Known Allergies Allergy Verified 10/08/23 15:53 PFSH [facility] Disclaimer: The information contained in this section may have been updated after the patient was seen, as this information can be updated by other users. Social History Smoking Status: Never smoker alcohol intake: never substance use type: denies use current occupational status: other Travel in the last 8 weeks: None household members: family housing: house ROS Obtained: Yes All systems reviewed & no additional complaints except as documented Physical Exam General General appearance: alert and in no apparent distress Head Head exam: atraumatic and normocephalic Eye Eye exam: Present normal appearance, PERRL and EOMI ENT ENT exam: Present normal exam, normal oropharynx, mucous membranes moist and normal external ear exam Neck Neck exam: Present normal inspection, full ROM and trachea midline; Absent tenderness Chest Chest inspection: Present symmetric chest wall rise and tenderness (Right chest wall) Respiratory Respiratory exam: Present normal lung sounds bilaterally; Absent respiratory distress, wheezes, stridor or accessory muscle use Cardiovascular Cardiovascular exam: Present regular rate and normal rhythm Abdominal Exam Abdominal exam: Present soft; Absent distention, tenderness or guarding Extremities Exam Extremities exam: Present normal inspection, full ROM and normal capillary refill; Absent tenderness or edema Back Exam Back exam: Present normal inspection and full ROM; Absent tenderness Neurological Exam Neurological exam: Present alert, oriented X3, CN II-XII intact and normal gait; Absent motor sensory deficit Psychiatric Psychiatric exam: Present normal affect and normal mood Skin Skin exam: Present warm and dry Medical Decision Making Medical Records Medical records reviewed: Yes I reviewed the patient's medical records. Nick Inquiry Pt receiving controlled substance: Yes Nick was queried for this patient: Yes Risks and benefits of using a controlled substance: were discussed with pt by me Vital Signs: 01/08/24 20:36 01/08/24 22:46 Temperature 98.3 F 98.2 F Temperature Source Oral Oral Pulse Rate 69 Pulse Rate [Left] 79 Respiratory Rate 20 18 Blood Pressure 169/97 H Blood Pressure [Right Arm] 170/113 H Blood Pressure Mean [Right Arm] 132 Blood Pressure Source Automatic Cuff Blood Pressure Source [Right Arm] Automatic Cuff Blood Pressure Position Sitting Blood Pressure Position [Right Arm] Sitting 02 Sat by Pulse Oximetry 98 Oxygen Delivery Method Room Air Room Air Lab Data Lab results reviewed: Yes I reviewed the patient's lab results. Orders (Tests/Meds): ED MEDICATIONS Discontinued Medications Generic Name Dose Route Start Last Admin Trade Name Freq PRN Reason Stop Dose Admin Acetaminophen 1,000 mg 01/08/24 20:55 01/08/24 21:23 Acetaminophen 500mg Tab PO 01/08/24 20:56 1,000 mg ONCE ONE Administration Ketorolac Tromethamine 30 mg 01/08/24 20:55 01/08/24 21:23 Ketorolac 30mg/Ml Vial IM 01/08/24 20:56 30 mg ONCE ONE Administration Lidocaine 1 each 01/08/24 20:55 01/08/24 21:24 Lidocaine 5% Transdermal Patch TP 01/08/24 20:56 1 each ONCE ONE Administration Methocarbamol 500 mg 01/08/24 20:55 01/08/24 21:23 Methocarbamol 500mg Tablet PO 01/08/24 20:56 500 mg ONCE ONE Administration Oxycodone HCl 5 mg 01/08/24 22:21 01/08/24 22:43 Oxycodone 5mg Immediate Release Tablet PO 01/08/24 22:22 5 mg ONCE ONE Administration ORDERS Category Date Time Status CT cervical spine wo con Stat Cat Scan 01/08/24 20:[address] chest wo con Stat Cat Scan 01/08/24 20:[address] head/brain wo con Stat Cat Scan 01/08/24 20:54 Completed Medical Decision Narrative: In summary, this patient is a 68-year-old male presenting to the Emergency Department for evaluation of right-sided chest wall pain after a fall yesterday. Differential diagnoses considered include but are not limited to rib fractures, contusion, strain/sprain, polytrauma. Ruling out the most morbid conditions drove assessment. It should be noted patient's history includes atrial fibrillation on Eliquis which may or may not be at goal therapy. This complicates all aspects of care by increasing patient's risk for morbidity. On exam, the patient has right-sided chest tenderness but is in no acute distress with reassuring lung sounds. Workup included CT head, CT C-spine, and CT chest without IV contrast. I independently interpreted CT scans prior to the radiologist read and noted isolated rib fracture without other acute concerns. Please see their read for final interpretation. Patient had good improvement in pain after administration of oral oxycodone, topical Lidoderm patch, oral Robaxin, oral Tylenol, and IM Toradol. At this time, he is able to pull well on incentive spirometry. I advised him that he would be high risk for pneumonia, but he would like to try going home with pain control to treat his rib fracture. I given strict return precautions as well as prescription for oxycodone, Robaxin, and Lidoderm patch. He was discharged after all questions were answered. Critical Care Critical Care Time Critical Care Time: No
--- NOTE | 2024-01-08 20:54 | CT_ITS ---
PROCEDURE INFORMATION: Exam: CT Chest Without Contrast; Diagnostic Exam date and time: 01/08/2024 9:42 PM Age: 68 years old Clinical indication: Injury or trauma; Fall; Blunt trauma (contusions or hematomas); Additional info: Fall on eliquis, R rib pain TECHNIQUE: Imaging protocol: Diagnostic computed tomography of the chest without contrast. Radiation optimization: All CT scans at this facility use at least one of these dose optimization techniques: automated exposure control; mA and/or kV adjustment per patient size (includes targeted exams where dose is matched to clinical indication); or iterative reconstruction. COMPARISON: CR XR RIBS LT MIN 3V W CXR1V 05/02/2022 5:50 PM FINDINGS: Lungs: Bibasilar subsegmental atelectasis. Pleural spaces: Unremarkable. No pneumothorax. No pleural effusion. Heart: Unremarkable. No cardiomegaly. No pericardial effusion. Coronary arteries: Atherosclerotic calcification of left anterior descending coronary artery. Lymph nodes: Unremarkable. No enlarged lymph nodes. Vasculature: Unremarkable. No aortic aneurysm. Bones/joints: Nondisplaced right 7th rib fracture. Soft tissues: Unremarkable. IMPRESSION: 1. Nondisplaced right 7th rib fracture with bibasilar subsegmental atelectasis. 2. No pneumothorax identified.
--- NOTE | 2024-01-08 20:54 | CT_ITS ---
PROCEDURE INFORMATION: Exam: CT Head Without Contrast Exam date and time: 01/08/2024 9:37 PM Age: 68 years old Clinical indication: Injury or trauma; Fall; Blunt trauma (contusions or hematomas); Additional info: Fall on eliquis TECHNIQUE: Imaging protocol: Computed tomography of the head without contrast. Radiation optimization: All CT scans at this facility use at least one of these dose optimization techniques: automated exposure control; mA and/or kV adjustment per patient size (includes targeted exams where dose is matched to clinical indication); or iterative reconstruction. COMPARISON: No relevant prior studies available. FINDINGS: Brain: Periventricular and subcortical small vessel ischemic changes appear chronic. Mild atrophy associated. No acute hemorrhage, mass effect, midline shift, or extra-axial fluid collection. Cerebral ventricles: No ventriculomegaly. Paranasal sinuses: Visualized sinuses are unremarkable. No fluid levels. Mastoid air cells: Visualized mastoid air cells are well aerated. Bones/joints: Unremarkable. No acute fracture. Soft tissues: Unremarkable. IMPRESSION: No acute traumatic intracranial abnormality.
--- NOTE | 2024-01-08 20:54 | CT_ITS ---
PROCEDURE INFORMATION: Exam: CT Cervical Spine Without Contrast Exam date and time: 01/08/2024 9:39 PM Age: 68 years old Clinical indication: Injury or trauma; Fall; Blunt trauma; Additional info: Fall on eliquis TECHNIQUE: Imaging protocol: Computed tomography of the cervical spine without contrast. Radiation optimization: All CT scans at this facility use at least one of these dose optimization techniques: automated exposure control; mA and/or kV adjustment per patient size (includes targeted exams where dose is matched to clinical indication); or iterative reconstruction. COMPARISON: CT HEAD/BRAIN WO CON 01/08/2024 9:37 PM FINDINGS: Bones/joints: Degenerative changes. C2-C3: No significant disc bulge or herniation. No severe spinal canal stenosis. No significant neural foraminal narrowing. C3-C4: No significant disc bulge or herniation. No severe spinal canal stenosis. No significant neural foraminal narrowing. C4-C5: No significant disc bulge or herniation. No severe spinal canal stenosis. No significant neural foraminal narrowing. C5-C6: No significant disc bulge or herniation. No severe spinal canal stenosis. No significant neural foraminal narrowing. C6-C7: No significant disc bulge or herniation. No severe spinal canal stenosis. No significant neural foraminal narrowing. C7-T1: No significant disc bulge or herniation. No severe spinal canal stenosis. No significant neural foraminal narrowing. Lungs: Lung apices are normal. Soft tissues: Unremarkable. IMPRESSION: No acute traumatic abnormality identified.
[2024-01-08] MEDS: METHOCARBAMOL 500MG TABLET 500 MG PO (21:23)
[2024-01-08] MEDS: KETOROLAC 30MG/ML VIAL 30 MG IM (21:23)
[2024-01-08] MEDS: ACETAMINOPHEN 500MG TAB 1000 MG PO (21:23)
[2024-01-08] MEDS: LIDOCAINE 5% TRANSDERMAL PATCH 1 EACH TP (21:24)
[2024-01-08] MEDS: OXYCODONE 5MG IMMEDIATE RELEASE TABLET 5 MG PO (22:43)
[2024-01-08 22:46] VITALS: BP 169/97; PULSE 69; RESP 18; TEMP 36.8; O2SAT 97
== END 2024-01-08 22:59 | disposition home or self-care (01) ==
PROVIDERS: Emergency Provider Emergency Medicine; PCP Nurse Practitioner Adult Health
DX: S22.31XA Fracture of one rib, right side, initial encounter for closed fracture (principal); W18.30XA Fall on same level, unspecified, initial encounter
CPT/HCPCS: 70450; 71250; 72125; 96372; 99285

== ENCOUNTER 2025-05-26 18:40 | Emergency (ER) | payer MEDICARE, SELFPAY ==
--- OUTSIDE RECORDS SUMMARY | 2025-03-28 15:00 | XMS_ITS | Encounter Summary ---
[facility] Address [address] [place] [address] Care Team Providers Care Debate Director Name Role Phone Brittnee Espinal APRN Primary Care Provi marcel Encounter Details Date Type Department Care Team (Latest Contact Info) Description 03/28/2025 3:00 PM EDT Clinical Support [facility] [address] [place] [address] [address] [place] [address] Persistent atrial fibrillation [I48.19] (Primary Dx) Social History Tobacco Use Types Packs/Day Years Used Date Smoking Tobacco: Never Passive Smoke Exposure: Never Smokeless Tobacco: Former Chew Quit: 06/27/1994 Alcohol Use Standard Drinks/Week Comments No 0 (1 standard drink = 0.6 oz pur e alcohol) AUDIT-C Answer Date Recorded Q1: How often do you have a drink containing alcohol? Never 03/14/2025 Q2: How many drinks containi ng alcohol do you have on a typical day when you are drinking? Patient does not drink Q3: How often do you have si x or more drinks on one occasion? Never 03/14/2025 Abuse Screen Answer Date Recorded Feels Unsafe at Home or Work/School no 03/14/2025 Feels Threatened by Someone no 10/2024 Does Anyone Try to Keep You From Having Contact with Others or Doing Things Outside Your Home? no 03/14/2025 Physical Signs of Abuse Present no 03/14/2025 Housing Stability Answer Date Recorded Current Living Arrangements home 11/2024 Potentially Unsafe Housing Conditions Not on leonard e 03/15/2025 Disabilities Answer Date Recorded Difficulty Concentrating, Remembering or Making Decisions no 03/14/2025 Difficulty Managing Errands Independently no 03/14/2025 Education Answer Date Recorded Help with school or training? Not on file Preferred Language Togolese 03/07/2025 Sex and Gender Information Value Date Recorded Sex Assigned at Not on file Legal Sex Male 6:08 PM EDT Gender Identity Not on file Sexual Orientation Not on file documented as of this encounter Progress Notes * Arabella Chau RN - 03/28/2025 3:00 PM EDT 03/28/2025 Tha Fox, : 1955 Fever: No Wound Location: Right groin Dressing Removed: open to air upon arrival Wound Appearance: Right groin insertion site from ablation on 03/14/2025. Site noted to have mild redness and a small amount of sloughing present. No drainage observed. Site not warm to touch. Patient denies fever and chills. Todd Pringle PA-C notified. See orders Patient will have a follow up wound check Wednesday04/03/2025. Gloves used, wound cleansed with sterile 4x4 and peroxide [x] Antibiotic started [x] Appointment for follow-up scheduled for 3 months post procedure [x] Future Appointments Date Time Provider Department Center 04/19/2025 3:00 PM Levi Thurman APRN [facility] 06/26/2025 1:00 PM [facility] 10/02/2025 1:00 PM Panchito Hawkins PA [facility] 04/09/2026 1:15 PM Bang Gan MD Kit C [facility] Arabella Chau RN, 03/28/25 Signature: Completed By/Date: documented in this encounter Plan of Treatment Upcoming Encounters Date Type Department Care Team (Late st Contact Info) Description 06/26/2025 1:00 PM EDT Office Visit [facility] [address] [facility] [address] [place] [address] Bang Gan MD [address] [facility] [address] [place] [address] 10/02/2025 1:00 PM EST Office Visit [facility] [address] [facility] [address] [place] [address] Panchito Hawkins PA [address] [facility] [address] [facility] [address] [place] [address] 04/09/2026 1:15 PM EDT Office Visit [facility] [address] [facility] [address] [place] [address] Bang Gan MD [address] [facility] [address] [place] [address] Scheduled Procedures Name Priority Associated Diagnoses Date/Ti me CARDIOVERSION Paroxysmal atrial fibrillation documented as of this encounter Visit Diagnoses Diagnosis Persistent atrial fibrillation [I48.19]- Primary Atrial fibrillation documented in this encounter Care Teams Debate Director Relationship Specialty Start Date End Date Brittnee Espinal APRN [address] [place] [address] [address] [place] [address] PCP - General Internal Medicine 11/16/22 documented as of this encounter
--- OUTSIDE RECORDS SUMMARY | 2025-04-03 13:00 | XMS_ITS | Encounter Summary ---
[facility] Address [address] [place] [address] Care Team Providers Care Container Finishing Inspector Name Role Phone Brittnee Espinal APRN Primary Care Provi marcel Encounter Details Date Type Department Care Team (Latest Contact Info) Description 04/03/2025 1:00 PM EDT Clinical Support [facility] [address] [place] [address] [address] [place] [address] PAF (paroxysmal atrial fibrillation) [I48.0] (Primary Dx) Social History Tobacco Use Types [...] or training? Not on file Preferred Language [place] Citizen 03/07/2025 Sex and Gender Information Value Date Recorded Sex Assigned at Not on file Legal Sex Male 6:08 PM EDT Gender Identity Not on file Sexual Orientation Not on file documented as of this encounter Progress Notes * Arabella Chau RN - 04/03/2025 1:00 PM EDT 04/03/2025 Tha Fox, : 1955 Fever: No Wound Location: Right groin Dressing Removed: Wound open to air Wound Appearance: Insertion site is clean,dry,and intact with no signs/symptoms of infection present. Patient educated on wound care and post procedure restrictions. Gloves used, wound cleansed with sterile 4x4 and peroxide [x] Appointment for follow-up scheduled for 3 months post procedure [x] Future Appointments Date Time Provider Department Center 04/19/2025 3:00 PM Levi Thurman APRN [facility] 06/26/2025 1:00 PM Bang Gan MD [facility] 10/02/2025 1:00 PM Panchito Hawkins PA [facility] 04/09/2026 1:15 PM Bang Gan MD E C [facility] Arabella Chau RN, 04/03/25 Signature: Completed By/Date: documented in this encounter Plan of Treatment Upcoming Encounters Date Type Department Care Team (Late st Contact Info) Description 06/26/2025 1:00 PM EDT Office Visit [facility] [address] [facility] [address] [place] [address] Bang Gan MD [address] [facility] [address] [place] [id number] 10/02/2025 1:00 PM EST Office Visit [facility] [address] [facility] [address] [place] [address] Panchito Hawkins PA [address] [facility] [address] [address] [place] [address] 04/09/2026 1:15 PM EDT Office Visit [facility] [address] [facility] [address] [place] [address] Bang Gan MD [address] [facility] [address] [place] [address] Scheduled Procedures Name Priority Associated Diagnoses Date/Ti me CARDIOVERSION Paroxysmal atrial fibrillation documented as of this encounter Visit Diagnoses Diagnosis PAF (paroxysmal atrial fibrillation) [I48.0]- Primary Atrial fibrillation documented in this encounter Care Teams Container Finishing Inspector Relationship Specialty Start Date End Date Brittnee Espinal APRN [address] [place] [address] [address] [place] [address] PCP - General Internal Medicine 11/16/22 documented as of this encounter
--- OUTSIDE RECORDS SUMMARY | 2025-04-19 15:00 | XMS_ITS | Encounter Summary ---
Author Organization [facility] Address [address] [place] [address] Care Team Providers Care Technician Telecommunication Systems Name Role Phone Brittnee Espinal APRN Primary Care Provi marcel Reason for Visit * Reason Comments Post PVA Atrial Fibrillation Encounter Details Date Type Department Care Team (Late st Contact Info) Description 04/19/2025 3:00 PM EDT Office Visit [facility] [address] [facility] [address] [place] [id number] Levi Thurman APRN [address] [facility] [address] [place] [id number] Persistent atrial fibrillation [I48.19] (Primary Dx); Primary hypertension Social History Tobacco Use Types Packs/Day Years [...] or training? Not on file Preferred Language Palauan 03/07/2025 Sex and Gender Information Value Date Recorded Sex Assigned at Not on file Legal Sex Male 6:08 PM EDT Gender Identity Not on file Sexual Orientation Not on file documented as of this encounter Last Filed Vital Signs Vital Sign Reading Time Taken Comments Blood Pressure 144/75 04/19/2025 3:18 PM EDT Pulse 72 04/19/2025 3:18 PM EDT Temperature - - Respiratory Rate 18 04/19/2025 3:18 PM EDT Oxygen Saturation 96% 04/19/2025 3:18 PM EDT Inhaled Oxygen Concentration - - Weight 122 kg (268 lb 8 oz) 04/19/2025 3:18 PM E DT Height 175.3 cm (5' 9 ) 04/19/2025 3:18 PM EDT Body Mass Index 39.65 04/19/2025 3:18 PM EDT documented in this encounter Patient Instructions * Patient Instructions* Levi Thurman APRN - 04/19/2025 3:00 PM EDT - PCP: Helen Em PA-C. [phone]. [place], [place]. Ask for thyroid study documented in this encounter Progress Notes * Levi Thurman APRN - 04/19/2025 3:00 PM EDT Chief Complaint Post PVA and Atrial Fibrillation Subjective History of Present Illness {CC Problem List Visit Diagnosis Encounters Notes Medications Labs Result Review Imaging Media :23} Tha Fox, 69 y.o. male with persistent atrial fibrillation s/p ablation (2024, 2016), HTN presents to [facility] for Post PVA and Atrial Fibrillation. Patient recently underwent successful pulsed field ablation with isolation of pulmonary veins, posterior wall by Dr. Gan on 03/14/25. Patient was instructed to continue uninterrupted anticoagulation.Patient treated with short course antibiotics after procedure redness at ablation access site. Patient presents today doing well since their procedure. States no recurrence of arrhythmia symptoms. Reports access site now well healed and essentially back to normal after antibiotic course. Denies signs/symptoms of bleeding. They have continued uninterrupted anticoagulation as instructed with no bleeding complications. Risk factor screening: Thyroid disorder: Will check TSH at PCP Sleep apnea: Will monitor HTN: Controlled on home monitoring Weight: Approximately 20lb weight loss over the past year, continue efforts Alcohol: No Objective Vital Signs: Vitals: 04/19/25 1518 BP: 144/75 BP Location: Left arm Patient Position: Sitting Cuff Size: Adult Pulse: 72 Resp: 18 SpO2: 96% Weight: 122 kg (268 lb 8 oz) Height: 175.3 cm (69 ) Body mass index is 39.65 kg/m??. Physical Exam Vitals and nursing note reviewed. Constitutional: Appearance: Normal appearance. HENT: Head: Normocephalic. Eyes: Extraocular Movements: Extraocular movements intact. Neck: Vascular: No carotid bruit. Cardiovascular: Rate and Rhythm: Normal rate and regular rhythm. Pulses: Normal pulses. Heart sounds: Normal heart sounds, S1 normal and S2 normal. No murmur heard. Pulmonary: Effort: Pulmonary effort is normal. No respiratory distress. Breath sounds: Normal breath sounds. Musculoskeletal: Cervical back: Neck supple. Right lower leg: No edema. Left lower leg: No edema. Skin: General: Skin is warm and dry. Neurological: General: No focal deficit present. Mental Status: He is alert. Psychiatric: Mood and Affect: Mood normal. Behavior: Behavior normal. Thought Content: Thought content normal. Data Reviewed:{ Labs Result Review Imaging Med Tab Media :23} Lab Results Component Value Date GLUCOSE 286 (H) 03/07/2025 CALCIUM 9.6 03/07/2025 NA 139 03/07/2025 K 4.8 03/07/2025 CO2 24.9 03/07/2025 CL 102 03/07/2025 BUN 19.3 03/07/2025 CREATININE 1.22 03/07/2025 EGFR 63.4 03/07/2025 BCR 15.8 03/07/2025 ANIONGAP 12.1 03/07/2025 Lab Results Component Value Date TSH 3.942 01/14/2016 Lab Results Component Value Date WBC 10.09 03/07/2025 HGB 16.0 03/07/2025 HCT 45.7 03/07/2025 MCV 89.3 03/07/2025 PLT 200 03/07/2025 Assessment & Plan Assessment and Plan {CC Problem List Visit Diagnosis ROS Review (Popup) Health Maintenance Quality BestPractice Medications SmartSets SnapShot Encounters Media :23} 1. Persistent atrial fibrillation [I48.19] -s/p successful pulsed field ablation with isolation of pulmonary veins, posterior wall by Dr. Gan on 03/14/25. -No arrhythmia symptoms since recent procedure -Regular rate/rhythm at time of exam today. -[id number]: 2 (age, HTN) -Continue anticoagulation with apixaban 5 Mg every 12 hours -Continue carvedilol 25mg BID -Discussed modifiable risk factors including: TSH check at PCP, continue weight loss efoorts -AF education provided in clinic today. -Continue routine EP follow-up as scheduled 2. Primary hypertension -Reasonable control today, reports controlled on home monitoring. -Continue carvedilol, losartan, amlodipine as prescribed -Continue routine ambulatory BP monitoring Follow Up {Instructions Charge Capture Follow-up Communications :23} Return if symptoms worsen or fail to improve. Patient was given instructions and counseling regarding his condition or for health maintenance advice. Please see specific information pulled into the AVS if appropriate. Patient was instructed to call the [facility] with any questions, concerns, or worsening symptoms. Dictated Utilizing Dragon Dictation Please note that portions of this note were completed with a voice recognition program. Part of this note may be an electronic shuttle buggy operator/translation of spoken language to printed text using the [employer] Dictation System. documented in this encounter Plan of Treatment Upcoming Encounters Date Type Department Care Team (Late st Contact Info) Description 06/26/2025 1:00 PM EDT Office Visit [facility] [address] [facility] [address] [place] [address] Bang Gan MD [address] [facility] [address] [place] [address] 10/02/2025 1:00 PM EST Office Visit [facility] [address] [facility] [address] [place] [address] Panchito Hawkins PA [address] [facility] [address] [facility] [address] [place] [address] 04/09/2026 1:15 PM EDT Office Visit [facility] [address] [facility] [address] [place] [address] Bang Gan MD [address] [facility] [address] [place], [place] [phone] Scheduled Orders Name Type Priority Associated Diagnoses Orde r Schedule TSH Lab Routine Persistent atrial fibrillation [I48.19] Expected: 04/24/2025 (Approximate), Expires: 07/20/2026 Scheduled Procedures Name Priority Associated Diagnoses Date/Ti me CARDIOVERSION Paroxysmal atrial fibrillation documented as of this encounter Visit Diagnoses Diagnosis Persistent atrial fibrillation [I48.19]- Primary Atrial fibrillation Primary hypertension Unspecified essential hypertension documented in this encounter Care Teams Technician Telecommunication Systems Relationship Specialty Start Date End Date Brittnee Espinal APRN [address] [place] [address] [address] [place] [address] PCP - General Internal Medicine 11/16/22 documented as of this encounter
[2025-05-26 18:47] VITALS: BP 172/116; PULSE 76; O2SAT 96
[2025-05-26 18:49] VITALS: BP 172/116; PULSE 75; RESP 16; TEMP 36.6; O2SAT 96; BMI 39.9
--- OUTSIDE RECORDS SUMMARY | 2025-05-26 18:59 | XMS_ITS | Clinical Summary ---
Author Organization [facility] Address [address] [place] [address] Care Team Providers Care Documentum Consultant Name Role Phone Unavailable Primary Care Provider Unavailabl e Social History Tobacco Use Types Packs/Day Years Used Date Smoking Tobacco: Never Assessed Sex and Gender Information Value Date Recorded Sex Assigned at Not on file Legal Sex Male 8:10 PM EDT Gender Identity Not on file Sexual Orientation Not on file Last Filed Vital Signs Vital Sign Reading Time Taken Comments Blood Pressure - - Pulse - - Temperature 36.7 C (98 F) 05/23/2023 5:42 PM EDT Respiratory Rate 16 05/23/2023 5:42 PM EDT Oxygen Saturation 96% 05/23/2023 5:42 PM EDT RA Inhaled Oxygen Concentration - - Weight - - Height - - Body Mass Index - - Plan of Treatment Not on file
--- OUTSIDE RECORDS SUMMARY | 2025-05-26 18:59 | XMS_ITS | Encounter Summary ---
[facility] Address [address] [place] [address] Care Team Providers Care Operations Director Name Role Phone Brittnee Espinal APRN Primary Care Provi [facility] Reason for Visit * Reason Comments Med Refill Encounter Details Date Type Department Care Team (Late st Contact Info) Description 05/23/2025 Refill [facility] [address] [facility] [address] [place] [phone] Bang Gan MD [address] [facility] [address] [place] [address] Med Refill Social History Tobacco Use Types Packs/Day Years [...] or training? Not on file Preferred Language Bahamian 03/07/2025 Sex and Gender Information Value Date Recorded Sex Assigned at Not on file Legal Sex Male 6:08 PM EDT Gender Identity Not on file Sexual Orientation Not on file documented as of this encounter Plan of Treatment Upcoming Encounters Date Type Department Care Team (Late st Contact Info) Description 06/26/2025 1:00 PM EDT Office Visit [facility] [address] [place] [phone] Bang Gan MD [address] [address] 10/02/2025 1:00 PM EST Office Visit [facility] [address] [address] Panchito Hawkins PA [address] [facility] [address] [id number] 04/09/2026 1:15 PM EDT Office Visit [facility] [address] [facility] [address] [place] [address] Bang Gan MD [address] [phone] Scheduled Procedures Name Priority Associated Diagnoses Date/Ti me CARDIOVERSION Paroxysmal atrial fibrillation documented as of this encounter Visit Diagnoses Not on filedocumented in this encounter Care Teams Operations Director Relationship Specialty Start Date End Date Brittnee Espinal APRN [address] [place] [address] [address] [place] [address] PCP - General Internal Medicine 11/16/22 documented as of this encounter
--- OUTSIDE RECORDS SUMMARY | 2025-05-26 18:59 | XMS_ITS | Clinical Summary ---
Author Organization [facility] Address [address] [place] [address] Care Team Providers Care Wet Pan Operator Name Role Phone Brittnee Espinal APRN Primary Care Provi marcel Allergies No known active allergies Medications coenzyme Q10 100 MG capsule Take 1 capsule by mouth Daily. Active Multiple Vitamins-Career Developer als (CENTRUM SILVER ADULT 50+ PO) Take 1 tablet by mouth Daily. Active aspirin 81 MG EC tablet Take 1 tablet by mouth Daily. Active losartan (COZAAR) 100 MG tablet Take 1 tablet by mouth once daily 90 tablet 1 5 Active spironolactone (ALDACTONE) 25 MG tablet Take 1 tablet by mouth once daily 90 tablet 5 Active amLODIPine (NORVASC) 10 MG tablet Take 1 tablet by mouth once daily 90 tablet 5 Active carvedilol (COREG) 25 MG tablet Take 1 tablet by mouth twice daily 180 tablet 5 Active apixaban (Eliquis) 5 MG tablet tablet Take 1 tablet by mouth twice daily 180 tablet 3 5 Active apixaban (Eliquis) 5 MG tablet tablet Take 1 tablet by mouth twice daily 60 tablet 11 4 05/23/20 25 Discontinued carvedilol (COREG) 25 MG tablet Take 1 tablet by mouth twice daily 180 tablet 5 05/10/20 25 Discontinued Active Problems Problem Noted Date Diagnosed Date 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 12/02/2023 Chronic anticoagulation 12/02/2023 Obesity, Class II, BMI 35-39.9 12/14/2016 Overview (12/14/2016): BMI 38.3 on 11/23/16 PAF (paroxysmal atrial fibrillation) 10/14/2016 Atrial flutter 08/31/2016 Persistent atrial fibrillation Hypertension Pre-diabetes Overview (02/03/2017): A1c 6.1 on 12/29/16, no medical treatment Resolved Problems Problem Noted Date Diagnosed Date Resolved Date Long-term use of high-risk medication 12/02/2023 12/02/2023 Encounters Date Type Department Care Team Description 05/23/2025 Refill [facility] [address] [facility] [place] [address] Bang Gan MD Med Refill 05/10/2025 Refill [facility] [address] [place] [address] Bang Gan MD Med Refill 04/19/2025 3:00 PM EDT Office Visit [facility] [address] [facility] [place] [address] Levi Thurman APRN Persistent atrial fibrillation [I48.19] (Primary Dx); Primary hypertension 04/19/2025 Travel 04/17/2025 Refill [facility] [address] [facility] [place] [address] Bang Gan MD Med Refill 04/03/2025 1:00 PM EDT Clinical Support [facility] [address] [facility] [place] [address] PAF (paroxysmal atrial fibrillation) [I48.0] (Primary Dx) 04/03/2025 Travel 03/29/2025 Telephone [facility] [address] [facility] [place] [address] Tdod Pringle PA-C 03/28/2025 3:00 PM EDT Clinical Support [facility] [address] [facility] [address] [place] [address] Persistent atrial fibrillation [I48.19] (Primary Dx) 03/28/2025 Travel 03/14/2025 8:00 AM EDT - 03/14/2025 10:00 AM EDT Surgery [facility] [address] [place] [address] Bang Gan MD Ablation atrial fibrillation (redo). Hold Flecainide 5 days prior. [55273 (CPT ) +8 more] 03/14/2025 7:40 AM EDT Anesthesia Event [facility] [address] [place] [address] Sirena Gramajo MD Bach, Jeremy, CRNA 03/14/2025 6:17 AM EDT - 03/15/2025 2:22 PM EDT Hospital Encounter [facility] [address]A [address] [place] [address] Bang Gan MD Persistent atrial fibrillation; PAF (paroxysmal atrial fibrillation) Discharge Disposition: Home or Self Care 03/14/2025 Travel 03/13/2025 Telephone [facility] [address] [address] Curry Feliz 03/13/2025 Telephone [facility] [address] [address] Donna Johnston RN PVA pre-call 03/12/2025 Telephone [facility] [address] [address] Curry Feliz 03/07/2025 11:01 AM EDT - 03/07/2025 11:59 PM EDT Hospital Encounter [facility] [address] [place] [address] Persistent atrial fibrillation; PAF (paroxysmal atrial fibrillation) Discharge Disposition: Home or Self Care 03/07/2025 10:30 AM EDT Pre-Admission Testing [facility] PREADMISSION T [address] [address] Atrial fibrillation, persistent 03/06/2025 Refill [facility] [address] [place] [address] Bang Gan MD Med Refill from Last 3 Months Immunizations Immunization Administration Dates Next Due COVID-19 (MODERNA) 1st,2nd,3rd Dose Monovalent 0 12/05/2020,11/07/2020 Tdap 03/06/2019 Family History Medical History Relation Name Comments Hypertension Father Relation Name Status Comments Brother 1 alive; 1 dece ased Father ME Mother diabetes Sister 4 sisters alive ; 2 Social History Tobacco Use Types Packs/Day Years Used Date Smoking Tobacco: Never Passive Smoke Exposure: Never Smokeless Tobacco: Former Chew Quit: 06/27/1994 Tobacco Cessation:Counseling Given: Not Answered Alcohol Use Standard Drinks/Week Comments No 0 [...] or training? Not on file Preferred Language Polish 03/07/2025 Sex and Gender Information Value Date Recorded Sex Assigned at Not on file Legal Sex Male 6:08 PM EDT Gender Identity Not on file Sexual Orientation Not on file Last Filed Vital Signs Vital Sign Reading Time Taken Comments Blood Pressure 144/75 04/19/2025 3:18 PM EDT Pulse 72 04/19/2025 3:18 PM EDT Temperature 36.7 C (98 F) 03/15/2025 12:55 PM EDT Respiratory Rate 18 04/19/2025 3:18 PM EDT Oxygen Saturation 96% 04/19/2025 3:18 PM EDT Inhaled Oxygen Concentration - - Weight 122 kg (268 lb 8 oz) 04/19/2025 3:18 PM E DT Height 175.3 cm (5' 9 ) 04/19/2025 3:18 PM EDT Body Mass Index 39.65 04/19/2025 3:18 PM EDT Plan of Treatment Upcoming Encounters Date Type Department Care Team (Late st Contact Info) Description 06/26/2025 1:00 PM EDT Office Visit [facility] [address] [facility] [place] [address] Bang Gan MD [address] [facility] [place], [place] [id number] 10/02/2025 1:00 PM EST Office Visit [facility] [address] [facility] [place] [address] Panchito Hawkins PA [address] [place], [place] [id number] 04/09/2026 1:15 PM EDT Office Visit [facility] [address] [facility] [address] [place] [address] Bang Gan MD [address] [facility] [address] [place] [address] Scheduled Procedures Name Priority Associated Diagnoses Date/Ti me CARDIOVERSION Paroxysmal atrial fibrillation Health Maintenance Due Date Last Done Comments COLOGUARD 1998 COLON CANCER SCREENING 5 YEA R SIGMOIDOSCOPY 1998 COLONOSCOPY 1998 COLORECTAL CANCER SCREENING 1998 CT COLONOGRAPHY 1998 FECAL OCCULT BLOOD TEST 1998 FIT Testing (1 year) 1998 Pneumococcal Vaccine 50+ (1 of 1 - PCV) 11/28/2003 ZOSTER VACCINE (1 of 2) 11/28/2003 ANNUAL WELLNESS VISIT 12/10/2016 HEPATITIS C SCREENING 12/10/2016 HEMOGLOBIN A1C 06/30/2017 12/29/2016 COVID-19 Vaccine ( season) 2025 07/17/2021, 12/05/2020, 11/07/2020 INFLUENZA VACCINE 06/13/2025 TDAP/TD VACCINES (2 - Td or Tdap) 03/06/2029 019 Procedures Procedure Name Priority Date/Time Associated Diagnosis Comments POCT ACTIVATED CLOTTING TIME Routine 03/14/2025 10:20 AM EDT EP STUDY Routine 03/14/2025 10:16 AM EDT Persistent atrial fibrillation PAF (paroxysmal atrial fibrillation) POCT ACTIVATED CLOTTING TIME Routine 03/14/2025 9:42 AM EDT POCT ACTIVATED CLOTTING TIME Routine 03/14/2025 9:02 AM EDT POCT ACTIVATED CLOTTING TIME Routine 03/14/2025 8:35 AM EDT ANESTHESIA INTUBATION Routine 03/14/2025 8:[address] ANGIOGRAM CHEST W WO CONTRAST Routine 03/07/2025 12:35 PM EDT Persistent atrial fibrillation PAF (paroxysmal atrial fibrillation) BASIC METABOLIC PANEL Routine 03/07/2025 10:39 AM EDT Atrial fibrillation, persistent CBC (NO DIFF) Routine 03/07/2025 10:39 AM EDT Atrial fibrillation, persistent HEMOGLOBIN A1C Routine 12/29/2016 10:00 AM EDT Pre-diabetes from Last 3 Months or Most Recently Relevant to Health Maintenance Results * (ABNORMAL) POC Activated Clotting Time (03/14/2025 10:20 AM EDT) Only the most recent of4 resultswithin the time period is included. Activated Clotting Time 366(H) 82 - 152 Seconds 03/23/2025 8:23 AM EDT [facility] Comment:Serial Number: [id number] 1Operator: [id number] Blood 03/14/2025 10:2 0 AM EDT 03/23/2025 8:23 AM EDT us Bang Gan MD POINT OF CARE TEST ORDERABLES Fi nal Result [facility]
[address] [phone] * ABLATION A-FIB (03/14/2025 10:16 AM EDT) Anatomical Region Laterality Modality X-Ray Angiograph y Addenda Addendum by Bang Gan MD on 03/15/2025 10:01 AM EDT 1. Successful pulsed field ablation (PFA) with isolation of the pulmonary veins (touchup ablation at the sky of the right pulmonary veins) 2. Successful posterior wall isolation 3. Successful ablation anterior to the right superior pulmonary vein (PAC + additional shuttle bus driver of atrial fibrillation per Vektor mapping) 4. Successful SVC isolation. Procedure Narrative DATE OF PROCEDURE: 03/14/25 PROCEDURE(S) PERFORMED: 1. Diagnostic electrophysiology study with pulsed field ablation (PFA) of the pulmonary veins (touchup ablation around the sky of the right pulmonary veins) 2. Left atrial roofline creation for persistent atrial fibrillation 3. Left atrial posterior inferior line for persistent atrial fibrillation to achieve posterior wall isolation 4. Ablation of a focal PAC from anterior to the right superior vein 5. SVC isolation due to PACs from the SVC 6. Attempted induction of arrhythmia on drug therapy INDICATIONS FOR PROCDEDURE: Patient is a very pleasant 69 [employer] with a history of persistent atrial fibrillation. He underwent prior ablation with Dr. Singh in 2017. He has had recurrence of atrial fibrillation despite flecainide. After discussion of options he elected proceed with redo ablation. MEDICATION(S) GIVEN TO PATIENT DURING THIS PROCEDURE: General anesthesia. Heparin. Isoproterenol. Protamine. DESCRIPTION(S) OF THE PROCEDURE: The patient was brought to the cardiovascular electrophysiology laboratory in a non-sedated state. The risks and benefits of general anesthesia, diagnostic electrophysiology study, and possible radiofrequency ablation were explained to the patient and written, informed consent was obtained. The patient was prepped and draped in the usual sterile manner. Access through the right femoral vein, and left femoral vein was achieved x3 using the modified Seldinger technique, and the following sheaths and catheters were inserted: 1. A 6-Honduran, steerable Cordis Nielsen catheter was advanced via a 7-Honduran sheath in the right femoral vein to the coronary sinus for left atrial recording and pacing. 2. A 8-Honduran, intracardiac ultrasound catheter was advanced via a 9-Honduran sheath in the left femoral vein to the high right atrium and eventually transseptal into the left atrium. 3. A 10.8 Farawave PFA catheter was advanced via a intravascular 17-Honduran Faradrive sheath to the left atrium for mapping and ablation. This catheter was later exchanged for a 6-Honduran pentaray catheter for mapping of the left and right atrium. Subsequently, this catheter was later exchanged for an 8 Honduran Farapoint PFA catheter for ablation along the tricuspid valve/inferior cava isthmus. A diagnostic electrophysiology study was then performed. The patient arrived in the clinical electrophysiology laboratory in Atrial fibrillation with a ventricular rate of 80 bpm. The QRS of 104 ms and a QT interval of 356 ms the HV interval was measured at 44 ms.. Intracardiac ultrasound demonstrated no left atrial appendage thrombus or significant left atrial smoke. Transseptal catheterization to the left atrium was then performed x1 using a transseptal needle/sheath system. Intravenous heparin was initiated during the study to maintain activated clotting times greater than 350 seconds. A left atrial bipolar voltage map was then reconstructed using a 3-dimensional mapping system. Left atrial activation mapping was performed in atrial fibrillation. This showed a small area of reconnection in the sky of the right pulmonary veins. There was a prior roofline, with small areas of possible reconnection. There was some spontaneous low voltage on the anterior wall the left atrium. as identified. The Farawave PFA catheter was then advanced to the ostium of all pulmonary veins over guidewire. We begun with reisolation of the right pulmonary vein which was easily achieved using the flower configuration. Following pulmonary vein isolation the patient remained in atrial fibrillation. Therefore left atrial roofline was created to connect the 2 WACA lines. Atrial fibrillation persisted for this and a left inferior posterior line was created. This resulted in full posterior wall isolation.. Vektor mapping was then used to look for additional triggers of atrial fibrillation. This showed a hotspot anterior to the right superior pulmonary vein. Ablation was used to consolidate this area. Cardioversion was then performed at 200 J to restore sinus rhythm. EP testing was then performed. AV pau block point was 540 ms. AV pau effective refractory period was 600/420 ms. Isoproterenol at 2-20 mcg/minute was then started in an attempt to induce other atrial arrhythmias. AV pau block point was 430 ms on isoproterenol. No sustained arrhythmias were inducible. PAC morphologies were seen during isoproterenol. We attempted to use Vektor mapping to look at these as well, however there was significant noise on the EKG that made this difficult. Some of these seem to be occurring from anterior the right superior vein. Several also seem to be emanating from the SVC. We performed additional ablation anterior the right superior vein to treat these additional focal arrhythmias. We also performed SVC isolation. Rapid burst pacing after this was unable to induce any sustained atrial arrhythmias. A total of 37 deliveries of PFA were performed. Intracardiac ultrasound the end of procedure showed no pericardial effusion. The sheaths and catheters were then removed, and hemostasis was achieved with Vascade venous plugging system. Intracardiac ultrasound done at the end of the procedure demonstrated no pericardial effusion. The patient tolerated the procedure without difficulty and was transferred to their room in a stable condition. COMPLICATIONS: None. FINAL IMPRESSIONS: 1. Successful pulsed field ablation (PFA) with isolation of the pulmonary veins (touchup ablation at the sky of the right pulmonary veins) 2. Successful posterior wall isolation 3. Successful ablation anterior to the right superior pulmonary vein (PAC + additional shuttle bus driver of atrial fibrillation per Vektor mapping) 4. Successful SVC isolation. RECOMMENDATION(S): 1. The patient will be monitored on telemetry. Bang Gan MD 03/14/25 10:28 EDT us Bang Gan MD CV ELECTROPHYSIOLOGY ORDERABLES Edited Result - Final * BH AN ETT AIRWAY (03/14/2025 8:16 AM EDT) Narrative Kieran Mar CRNA - 03/14/2025 8:16 AM EDT Kieran Mar CRNA 03/14/2025 8:34 AM Airway Reason: elective Date/Time: 03/14/2025 7:55 AM Airway not difficult General Information and Staff Patient location during procedure: OR SRNA: Luci Gaitan SRNA Indications and Patient Condition Indications for airway management: airway protection Preoxygenated: yes MILS not maintained throughout Mask difficulty assessment: 2 - vent by mask + OA or adjuvant +/- NMBA Final Airway Details Final airway type: endotracheal airway Successful airway: ETT Cuffed: yes Successful intubation technique: video laryngoscopy Adjuncts used in placement: intubating stylet Endotracheal tube insertion site: oral Blade: Lazaro Blade size: 3 ETT size (mm): 7.5 Cormack-Lehane Classification: grade I - full view of glottis Placement verified by: chest auscultation and capnometry Cuff volume (mL): 6 Measured from: gums ETT/EBT to gums (cm): 22 Number of attempts at approach: 1 Assessment: lips, teeth, and gum same as pre-op and atraumatic intubation Additional Comments Negative epigastric sounds, Breath sound equal bilaterally with symmetric chest rise and fall us Sirena Gramajo MD ANESTHESIA ORDERABLES Final Result * CT Angiogram Chest (03/07/2025 12:35 PM EDT) Anatomical Region Laterality Modality Chest, Vascular N/A Computed Tomogra phy 03/07/2025 1:42 PM EDT Impressions 03/07/2025 1:45 PM EDT 1. Cardiac enlargement without pericardial effusion. 2. No anomalous pulmonary venous return. 3. Left atrial appendage well-opacified without significant thrombus burden. 4. Esophagus traverses the chest posterior to the left atrium just left of midline. Electronically Signed: Carrington Morse MD 03/07/2025 1:45 PM EDT Workstation ID: [id number] Narrative 03/07/2025 1:[address] ANGIOGRAM CHEST Date of Exam: 03/07/2025 12:25 PM EDT Indication: PVA. Technique: CTA of the chest was performed before and after the uneventful intravenous administration of 80 mL Isovue-370. Reconstructed coronal and sagittal images were also obtained. In addition, a 3-D volume rendered image was created for interpretation. Automated exposure control and iterative reconstruction methods were used. COMPARISON: None. FINDINGS: Four-chamber cardiac enlargement without pericardial effusion. Patent, nonaneurysmal thoracic aorta. Central pulmonary arteries are grossly patent. No anomalous pulmonary venous return. Left atrial appendage well-opacified without thrombus burden. Central airways are patent. Esophagus courses posterior to the left atrium. Extended lung windows are grossly clear. Procedure Note Panchito Morse MD - 03/07/2025 CT ANGIOGRAM CHEST Date of Exam: 03/07/2025 12:25 PM EDT Indication: PVA. Technique: CTA of the chest was performed before and after the uneventfulintravenous administration of 80 mL Isovue-370. Reconstructed coronal andsagittal images were also obtained. In addition, a 3-D volume renderedimage was created for interpretation. Automated exposure control and iterative reconstructionmethods were used. COMPARISON: None. FINDINGS: Four-chamber cardiac enlargement without pericardial effusion.Patent, nonaneurysmal thoracic aorta. Central pulmonary arteries aregrossly patent. No anomalous pulmonary venous return. Left atrialappendage well-opacified without thrombus burden. Central airways are patent. Esophagus courses posterior to theleft atrium. Extended lung windows are grossly clear. IMPRESSION: 1. Cardiac enlargement without pericardial effusion. 2. No anomalous pulmonary venous return. 3. Left atrial appendage well-opacified without significant thrombusburden. 4. Esophagus traverses the chest posterior to the left atrium just left ofmidline. Electronically Signed: Carrington Morse MD 03/07/2025 1:45 PM EDT Workstation ID: [id number] Bang Gan MD [facility] CT ORDERABLES Final Result * (ABNORMAL) CBC (No Diff) (03/07/2025 10:39 AM EDT) WBC 10.09 3.40 - 10.80 10*3/mm3 03/07/2025 11:05 AM EDT [facility] RBC 5.12 4.14 - 5.80 10*6/mm3 03/07/2025 11:05 AM EDT [facility] Hemoglobin 16.0 13.0 - 17.7 g/dL 03/07/2025 11:05 AM EDT [facility] Hematocrit 45.7 37.5 - 51.0 % 03/07/2025 11:05 AM EDT [facility] MCV 89.3 79.0 - 97.0 fL 03/07/2025 11:05 AM EDT [facility] MCH 31.3 26.6 - 33.0 pg 03/07/2025 11:05 AM EDT [facility] MCHC 35.0 31.5 - 35.7 g/dL 03/07/2025 11:05 AM EDT [facility] RDW 12.0(L) 12.3 - 15.4 % 03/07/2025 11:05 AM EDT [facility] RDW-SD 39.6 37.0 - 54.0 fl 03/07/2025 11:05 AM EDT [facility] MPV 10.8 6.0 - 12.0 fL 03/07/2025 11:05 AM EDT [facility] Platelets 200 140 - 450 10*3/mm3 03/07/2025 11:05 AM EDT [facility] Blood Venipuncture / Unknown 03/07/2025 10:39 AM EDT 03/07/2025 11:00 AM EDT Todd Pringle PA-C LAB BLOOD ORDERABLES Final R esult [facility]
[address] [place] [address], * (ABNORMAL) Basic Metabolic Panel (03/07/2025 10:39 AM EDT) Glucose 286(H) 65 - 99 mg/dL 03/07/2025 11:34 AM EDT [facility] BUN 19.3 8.0 - 23.0 mg/dL 03/07/2025 11:34 AM EDT [facility] Creatinine 1.22 0.76 - 1.27 mg/dL 03/07/2025 11:34 AM EDT [facility] Sodium 139 136 - 145 mmol/L 03/07/2025 11:34 AM [facility] Potassium 4.8 3.5 - 5.2 mmol/L 03/07/2025 11:34 AM [facility] Comment:Specimen hemolyzed. Result may be falsely elevated. Chloride 102 98 - 107 mmol/L 03/07/2025 11:34 [facility] CO2 24.9 22.0 - 29.0 mmol/L 03/07/2025 11:34 AM [facility] Calcium 9.6 8.6 - 10.5 mg/dL 03/07/2025 11:34 AM [facility] BUN/Creatinine Ratio 15.8 7.0 - 25.0 03/07/2025 11:34 AM [facility] Anion Gap 12.1 5.0 - 15.0 mmol/L 03/07/2025 11:34 AM [facility] eGFR 63.4 >60.0 mL/min/1.7 3 03/07/2025 11:34 AM [facility] Blood Venipuncture / Unknown 03/07/2025 10:39 AM EDT 03/07/2025 11:00 AM EDT [facility] - 03/07/2025 11:34 AM EDT GFR Categories in Chronic Kidney Disease (CKD) GFR Category GFR (mL/min/1.73) Interpretation G1 90 or greater Normal or high (1) G2 60-89 Mild decrease (1) G3a 45-59 Mild to moderate decrease G3b 30-44 Moderate to severe decrease G4 15-29 Severe decrease G5 14 or less Kidney failure (1)In the absence of evidence of kidney disease, neither GFR category G1 or G2 fulfill the criteria for CKD. eGFR calculation 2020 CKD-EPI creatinine equation, which does not include race as a factor Todd Pringle PA-C LAB BLOOD ORDERABLES Final R esult Performing Organization Address [facility] de Phone Number [facility]
[address] [place] [address], * (ABNORMAL) Hemoglobin A1c (12/29/2016 10:00 AM EDT) Hemoglobin A1C 6.10(H) 4.80 - 5.60 % 12/29/2016 10:27 AM EDT [facility] Blood Venipuncture / Unknown 12/29/2016 10:00 AM EDT 12/29/2016 10:12 AM EDT Narrative [facility] - 12/29/2016 10:27 AM EDT The [place] [employer] recommends maintenance of Hemoglobin A1C at 7.0% or lower. Goals for Hemoglobin A1C reduction may need to be modified if hypoglycemia is a problem. River Singh DO LAB BLOOD ORDERABLES Final Res ult Performing Organization Address [facility] de Phone Number [facility]
[address] [place] [address], from Last 3 Months or Most Recently Relevant to Health Maintenance Insurance [employer] PPO Care Teams Wet Pan Operator Relationship Specialty Start Date End Date Brittnee Espinal APRN [id number] [facility] [address] [place] [address] PCP - General Internal Medicine 11/16/22
--- OUTSIDE RECORDS SUMMARY | 2025-05-26 18:59 | XMS_ITS | Encounter Summary ---
Author Organization [facility] Address [address] [place] [address] Care Team Providers Care Cull Grader Name Role Phone Brittnee Espinal APRN [facility] Encounter Details Date Type Department Care Team (Latest Contact Info) Description 04/19/2025 Travel Social History Tobacco Use Types Packs/Day Years [...] or training? Not on file Preferred Language Congolese 03/07/2025 Sex and Gender Information Value Date Recorded Sex Assigned at Not on file Legal Sex Male 6:08 PM EDT Gender Identity Not on file Sexual Orientation Not on file documented as of this encounter Plan of Treatment Upcoming Encounters Date Type Department Care Team (Late st Contact Info) Description 06/26/2025 1:00 PM EDT Office Visit [facility] [address] [facility] [address] [place] [phone] Bang Gan MD 1720 [facility] [address] [place] [address] 10/02/2025 1:00 PM EST Office Visit [facility] [address] [facility] [address] [place] [phone] Panchito Hawkins PA [address] [facility] [address] [place] [phone] 04/09/2026 1:15 PM EDT Office Visit [facility] [address] [facility] [address] [place] [address] Bang Gan MD [address] [phone] Scheduled Procedures Name Priority Associated Diagnoses Date/Ti me CARDIOVERSION Paroxysmal atrial fibrillation documented as of this encounter Visit Diagnoses Not on filedocumented in this encounter Care Teams Cull Grader Relationship Specialty Start Date End Date Brittnee Espinal APRN [address] [place] [address] [address] [place] [address] PCP - General Internal Medicine 11/16/22 documented as of this encounter
--- OUTSIDE RECORDS SUMMARY | 2025-05-26 18:59 | XMS_ITS | Encounter Summary ---
Author Organization [facility] Address [address] [place] [address] Care Team Providers Care Furniture Installer Name Role Phone Brittnee Espinal APRN [facility] Encounter Details Date Type Department Care Team (Latest Contact Info) Description 04/03/2025 Travel Social History Tobacco Use Types Packs/Day [...] or training? Not on file Preferred Language Moroccan 03/07/2025 Sex and Gender Information Value Date Recorded Sex Assigned at Not on file Legal Sex Male 6:08 PM EDT Gender Identity Not on file Sexual Orientation Not on file documented as of this encounter Plan of Treatment Upcoming Encounters Date Type Department Care Team (Late st Contact Info) Description 06/26/2025 1:00 PM EDT Office Visit [facility]IOLOG[facility] [address] [facility] [address] [place] [phone] Bang Gan MD 1720 [facility] [address] [place] [address] 10/02/2025 1:00 PM EST Office Visit [facility] [address] [facility] [address] [place] [phone] Panchito Hawkins PA [address] [facility] [address] [place] [address] [phone] 04/09/2026 1:15 PM EDT Office Visit [facility] [address] [facility] [address] [place] [address] Bang Gan MD [address] [phone] Scheduled Procedures Name Priority Associated Diagnoses Date/Ti me CARDIOVERSION Paroxysmal atrial fibrillation documented as of this encounter Visit Diagnoses Not on filedocumented in this encounter Care Teams Furniture Installer Relationship Specialty Start Date End Date Brittnee Espinal APRN [address] [place] [address] [address] [place] [address] PCP - General Internal Medicine 11/16/22 documented as of this encounter
--- OUTSIDE RECORDS SUMMARY | 2025-05-26 18:59 | XMS_ITS | Encounter Summary ---
Author Organization [facility] Address [address] [place] [address] Care Team Providers Care In House Counsel Name Role Phone Brittnee Espinal APRN Primary Care Provi [facility] Encounter Details Date Type Department Care Team (Late st Contact Info) Description 03/29/2025 Telephone [facility]IOLOG[facility] [address] [facility] [address] [place] [address] Todd Pringle PA-C 1720 [facility] [address] [place] [address] Social History Tobacco Use Types Packs/Day Years [...] or training? Not on file Preferred Language Cypriot 03/07/2025 Sex and Gender Information Value Date Recorded Sex Assigned at Not on file Legal Sex Male 6:08 PM EDT Gender Identity Not on file Sexual Orientation Not on file documented as of this encounter Miscellaneous Notes * Telephone Encounter - Libertad Lord RN - 03/29/2025 10:52 AM EDT Returned patient call asking about prescription. Left voice mail for patient to call back. documented in this encounter Plan of Treatment Upcoming Encounters Date Type Department Care Team (Late st Contact Info) Description 06/26/2025 1:00 PM EDT Office Visit [facility] [address] [facility] [address] [place] [address] Bang Gan MD [address] [address] 10/02/2025 1:00 PM EST Office Visit [facility] [address] [facility] [address] [place] [address] Panchito Hawkins PA [address] [facility] [place] [phone] 04/09/2026 1:15 PM EDT Office Visit [facility] [address] [facility] [address] [place] [phone] Bang Gan MD [address] [facility] [address] [place] [phone] Scheduled Procedures Name Priority Associated Diagnoses Date/Ti me CARDIOVERSION Paroxysmal atrial fibrillation documented as of this encounter Visit Diagnoses Not on filedocumented in this encounter Care Teams In House Counsel Relationship Specialty Start Date End Date Brittnee Espinal APRN [address] [facility] [address] [place] [address] PCP - General Internal Medicine 11/16/22 documented as of this encounter
--- OUTSIDE RECORDS SUMMARY | 2025-05-26 18:59 | XMS_ITS | Encounter Summary ---
Author Organization [facility] Address [address] [place] [address] Care Team Providers Care Cardiac Surgeon Name Role Phone Brittnee Espinal APRN [facility] Encounter Details Date Type Department Care Team (Latest Contact Info) Description 03/28/2025 Travel Social History Tobacco Use Types Packs/Day [...] or training? Not on file Preferred Language Citizen Of [place] 03/07/2025 Sex and Gender Information Value Date Recorded Sex Assigned at Not on file Legal Sex Male 6:08 PM EDT Gender Identity Not on file Sexual Orientation Not on file documented as of this encounter Plan of Treatment Upcoming Encounters Date Type Department Care Team (Late st Contact Info) Description 06/26/2025 1:00 PM EDT Office Visit [facility] C[facility] [address] [facility] [address] [place] [phone] Bang Gan MD [address]20 [facility] [address] [place] [address] 10/02/2025 1:00 PM EST Office Visit [facility] [address] [facility] [address] [place] [phone] Panchito Hawkins PA [address] [facility] [place] [address] [phone] 04/09/2026 1:15 PM EDT Office Visit [facility] [address] [facility] [address] [place] [address] Bang Gan MD [address] [phone] Scheduled Procedures Name Priority Associated Diagnoses Date/Ti me CARDIOVERSION Paroxysmal atrial fibrillation documented as of this encounter Visit Diagnoses Not on filedocumented in this encounter Care Teams Cardiac Surgeon Relationship Specialty Start Date End Date Brittnee Espinal APRN [address] [place] [address] [address] [place] [address] PCP - General Internal Medicine 11/16/22 documented as of this encounter
--- OUTSIDE RECORDS SUMMARY | 2025-05-26 18:59 | XMS_ITS | Encounter Summary ---
Author Organization [facility] Address [address] [place] [address] Care Team Providers Care Armored Car Driver Name Role Phone Brittnee Espinal APRN Primary Care Provi [facility] Reason for Visit * Reason Comments Med Refill Encounter Details Date Type Department Care Team (Late st Contact Info) Description 04/17/[address] [facility] C[facility] 1720 [facility] [address] [place] [phone] Bang Gan MD 1720 [facility] [address] [place] [address] Med Refill Social History Tobacco Use Types [...] or training? Not on file Preferred Language Dutch 03/07/2025 Sex and Gender Information Value Date Recorded Sex Assigned at Not on file Legal Sex Male 6:08 PM EDT Gender Identity Not on file Sexual Orientation Not on file documented as of this encounter Plan of Treatment Upcoming Encounters Date Type Department Care Team (Late st Contact Info) Description 06/26/2025 1:00 PM EDT Office Visit [facility] C[facility] [address] [place] [phone] Bang Gan MD [address] [address] 10/02/2025 1:00 PM EST Office Visit [facility] C[facility] [address] [address] Panchito Hawkins PA [address] [facility] [address] [phone] 04/09/2026 1:15 PM EDT Office Visit [facility] 1720 [facility] [address] [place] [address] Bang Gan MD [address] [phone] Scheduled Procedures Name Priority Associated Diagnoses Date/Ti me CARDIOVERSION Paroxysmal atrial fibrillation documented as of this encounter Visit Diagnoses Not on filedocumented in this encounter Care Teams Armored Car Driver Relationship Specialty Start Date End Date Brittnee Espinal APRN [address] [place] [address] [address] [place] [address] PCP - General Internal Medicine 11/16/22 documented as of this encounter
--- OUTSIDE RECORDS SUMMARY | 2025-05-26 18:59 | XMS_ITS | Encounter Summary ---
Author Organization [facility] Address [address] [place] [address] Care Team Providers Care Insurance Agent Name Role Phone Brittnee Espinal APRN Primary Care Provi [facility] Reason for Visit * Reason Comments Med Refill Encounter Details Date Type Department Care Team (Late st Contact Info) Description 05/10/2025 Refill [facility] [address]20 [facility] [address] [place] [phone] Bang Gan MD 1720 [facility] [address] [place] [address] Med Refill Social History Tobacco Use Types [...] or training? Not on file Preferred Language Armenian 03/07/2025 Sex and Gender Information Value Date Recorded Sex Assigned at Not on file Legal Sex Male 6:08 PM EDT Gender Identity Not on file Sexual Orientation Not on file documented as of this encounter Plan of Treatment Upcoming Encounters Date Type Department Care Team (Late st Contact Info) Description 06/26/2025 1:00 PM EDT Office Visit [facility] CARDIOLOG[facility] [address] [place] [phone] Bang Gan MD [address] [address] 10/02/2025 1:00 PM EST Office Visit [facility] CARDIOLOG[facility] [address] [address] Panchito Hawkins PA [address] [facility] [address] [phone] 04/09/2026 1:15 PM EDT Office Visit [facility] [address] [facility] [address] [place] [address] Bang Gan MD [address] [phone] Scheduled Procedures Name Priority Associated Diagnoses Date/Ti me CARDIOVERSION Paroxysmal atrial fibrillation documented as of this encounter Visit Diagnoses Not on filedocumented in this encounter Care Teams Insurance Agent Relationship Specialty Start Date End Date Brittnee Espinal APRN [address] [place] [address] [address] [place] [address] PCP - General Internal Medicine 11/16/22 documented as of this encounter
[2025-05-26 19:00] VITALS: BP 156/93; PULSE 79; O2SAT 96
[2025-05-26 19:14] LABS: Strep Scrn Group A (Rapid) Negative (Negative)
[2025-05-26 19:50] LABS: Hematocrit 45.3 % (42.0-52.0); Hemoglobin 16.4 g/dL (14.1-18.0); Immature Granulocytes % 0.3 %; Mean Corpuscular HGB Conc 36.2 g/dL (31.8-35.4); Mean Corpuscular Hemoglobin 32.1 pg (27.0-31.2); Mean Corpuscular Volume 88.6 fl (80-94); Nucleated Red Blood Cells % 0 %; Platelet Count 192 K/mm3 (142-424); Red Blood Count 5.11 M/mm3 (4.60-6.20); Red Cell Distribution Width-SD 39.4 fL; White Blood Count 11.8 K/mm3 (4.8-10.8)
[2025-05-26 20:01] LABS: Albumin Level 4.6 g/dl (3.5-5.0); Chloride 104 mmol/L (98-107); Potassium 4.0 mmoL/L (3.5-5.1); Sodium 139 mmol/L (136-145)
[2025-05-26 20:03] LABS: Blood Urea Nitrogen 13 mg/dl (9-20); Creatinine Clearance Estimated 117 mL/min (50-200); Creatinine,Serum 0.90 mg/dl (0.66-1.25); Estimated Glomerular Filt Rate 83 ml/min (>60); GFR (African American) 101 ML/MIN (>60)
[2025-05-26 20:04] LABS: Alanine Aminotransferase 40 U/L (12-78); Albumin/Globulin Ratio 1.6 (1.1-1.8); Alkaline Phosphatase 83 U/L (38-126); Anion Gap 15.0 mEq/L (5-15); Aspartate Amino Transferase 45 U/L (17-59); Bilirubin,Total 1.6 mg/dl (0.2-1.3); Calcium 9.5 mg/dl (8.4-10.2); Carbon Dioxide 24 mmol/L (22.0-30.0); Cholesterol 153 mg/dl (140-200); Globulin 2.8 g/dL (1.3-3.2); Glucose 237 mg/dl (74-100); HDL Cholesterol 34 mg/dl (40-60); Total Protein,Serum 7.4 g/dl (6.3-8.2); Triglycerides 195 mg/dl (30-150)
[2025-05-26 20:19] VITALS: BP 147/99; PULSE 72; RESP 16; O2SAT 96
[2025-05-26 20:37] LABS: Thyroid Stimulating Hormone 1.90 uIU/mL (0.465-4.68)
[2025-05-26 21:04] LABS: Hemoglobin A1C 10.5 % (4.0-6.0)
[2025-05-26 21:07] LABS: Free T4 (Free Thyroxine) 1.12 ng/dl (0.78-2.19)
--- NOTE | 2025-05-26 21:09 | [facility].EDGENADL ---
Discharge Plan Disposition Patient Disposition: Home, Self-Care Condition: Good Prescriptions Prescriptions: No Action amlodipine 10 mg tablet 10 mg PO DAILY 60 Days Qty: 60 losartan 100 mg tablet 100 mg PO DAILY 90 Days Qty: 90 metoprolol tartrate 50 mg tablet 50 mg PO BID 90 Days Qty: 270 aspirin 81 mg tablet,chewable 81 mg PO DAILY coenzyme Q10 [Co Q-10] 10 mg capsule 10 mg PO TID lidocaine [Lidoderm] 5 % adhesive patch,medicated 1 patch topical DAILY Qty: 15 0RF Rx Instructions: leave on most painful area for up to 12 hrs methocarbamol 750 mg tablet 750 mg PO Q8H PRN (Reason: pain) Qty: 20 0RF oxycodone 5 mg tablet 5 mg PO Q8H PRN (Reason: pain) Qty: 10 0RF fluticasone propionate 120 SPR/BOT bottle 1 spr NS DAILY Qty: 1 0RF Rx Instructions: each nostril daily carvedilol 25 mg tablet 25 mg PO BID Patient Comments: TAKE 1 TABLET BY MOUTH TWICE DAILY flecainide 100 mg tablet 100 mg PO BID Patient Comments: TAKE 1 TABLET BY MOUTH TWICE DAILY Eliquis 5 mg tablet 5 mg PO DAILY amoxicillin [amoxicillin] 875 mg tablet 875 mg PO Q12H Qty: 20 0RF benzonatate [benzonatate] 100 mg capsule 100 mg PO TIDP PRN (Reason: Cough) Qty: 30 0RF Referrals Follow up/Referrals: Provider,Referral, MD [Primary Care Provider, Medical] - See instructions Activity Restrictions/Add. Instructions Additional Instructions/Restrictions: Your sore throat is being caused by a virus. If you develop inability to ear/swallow, uncontrollable drooling, neck stiffness, or shortness of breath please return. Also, the lab draw that we did shows that you have diabetes. Please see your primary care doctor this week and show them your labs for further management. Clinical Impressions Clinical Impression: Acute sore throat, Elevated hemoglobin A1c, Encounter for laboratory test Print Language Print Language: Moldovan Discharge ED Provider: Pernell Miguel Adult HPI General Chief complaint: Upper Respiratory Infection Stated complaint: sore throat Time Seen by Provider: 05/26/25 19:00 Mode of Arrival: Ambulatory Source of Information: Patient Description of Symptoms (Recalled from ER Triage Doc. by RN): pt c/o a sore throat and drainage ongoing since yesterday. pt is concerned because 11 years ago he had abcessed tonsils and was told, you know our first president of that. pt reports his pain is 4/10. He has not taken anything for pain History of Present Illness HPI narrative: This is a 69-year-old with past medical history of hypertension, who is presenting to the emergency department today for evaluation of a sore throat. Patient describes a viral prodrome over the last couple days of intermittent rhinorrhea and congestion. He states that this morning he woke up with a sore throat. This was particularly concerning to him because several years ago he got diagnosed with a abscessed tonsil . When asked further questions about this he states that he never underwent a CT scan to obtain this diagnosis and he did not require any invasive drainage of this abscessed tonsil. At the current present he tells me that he has not had any difficulty with swallowing, no difficulty with lateral rotation of his neck, no headaches, no difficulty tolerating secretions, and no changes in quality of his voice. In addition to this, the patient states that he has upcoming appointments with cardiology as well as ENT. He is requesting that we do a routine lab draw including basic labs as well as an A1c and thyroid studies and a lipid panel. Related Data Home Medications ?Medication ?Instructions ?Recorded ?Confirmed amlodipine 10 mg tablet 10 mg PO DAILY 60 days #60 tabs 05/28/18 10/28/19 losartan 100 mg tablet 100 mg PO DAILY 90 days #90 tabs 05/28/18 10/08/23 aspirin 81 mg chewable tablet 81 mg PO DAILY 10/06/18 10/08/23 coenzyme Q10 10 mg capsule (Co 10 mg PO TID 12/09/18 10/08/23 Q-10) metoprolol tartrate 50 mg tablet 50 mg PO BID 90 days #270 tabs 10/28/19 10/08/23 apixaban 5 mg tablet (Eliquis) 5 mg PO DAILY 10/08/23 10/08/23 carvedilol 25 mg tablet 25 mg PO BID 10/08/23 10/08/23 flecainide 100 mg tablet 100 mg PO BID 10/08/23 10/08/23 Previous Rx's ?Medication ?Instructions ?Recorded fluticasone propionate 50 1 spr NS DAILY #1 mL 05/02/21 mcg/actuation nasal spray,suspension amoxicillin 875 mg tablet 875 mg PO Q12H #20 tabs 10/08/23 benzonatate 100 mg capsule 100 mg PO TIDP PRN Cough #30 caps 10/08/23 lidocaine 5 % topical patch 1 patch topical DAILY #15 ea 01/08/24 (Lidoderm) methocarbamol 750 mg tablet 750 mg PO Q8H PRN pain #20 tabs 01/08/24 oxycodone 5 mg tablet 5 mg PO Q8H PRN pain #10 tabs 01/08/24 Allergies Allergy/AdvReac Type Severity Reaction Status Date / Time No Known Allergies Allergy Verified 05/26/25 18:53 [facility] Disclaimer: The information contained in this section may have been updated after the patient was seen, as this information can be updated by other users. Social History Smoking Status: Never smoker alcohol intake: never substance use type: denies use current occupational status: other Travel in the last 8 weeks?: None household members: family housing: house Have you lived/traveled outside [place] in past 30 days?: No Contact w/someone who lives/traveled outside [place] past 30 days?: No Exposure to someone with infectious disease in past 14 days?: No Do you have a fever (greater than 100.4 F or 38 C)?: No Have you tested positive for COVID-19?: No Exposed to someone with COVID-19 in past 14 days?: No Do you have a sore throat?: Yes Do you have a cough?: No Do you have any weakness?: No Do you have any diarrhea?: No Are you experiencing any unusual bleeding?: No Do you have any muscle aches/pain?: No Do you have any abdominal pain?: No Are you experiencing loss of taste or smell?: No Other Medical History Have you received the Flu Vaccine for this season: No Have you received the Pneumonia Vaccine: No ROS Obtained: Yes Systems reviewed as appropriate & no additional complaints except as documented Physical Exam General General appearance: other (See MDM) Respiratory Respiratory exam: Present other (See MDM) Cardiovascular Cardiovascular exam: Present other (See MDM) Neurological Exam Neurological exam: Present other (See MDM) Medical Decision Making Medical Records Medical records reviewed: Yes I reviewed the patient's medical records. Screening: Per USPSTF and CDC recommendations, given the prevalence of disease in our region, it is our hospital?s policy to screen for HIV and viral Hepatitis for all patients aged 18 and over and those with ongoing risk factors. Nick Inquiry Pt receiving controlled substance: No Nick was queried for this patient: No Vital Signs: 05/26/25 18:47 05/26/25 18:49 05/26/25 18:53 Temperature 97.9 F Temperature Source Oral Pulse Rate 76 Pulse Rate [Left] 75 Respiratory Rate 16 Blood Pressure 172/116 H Blood Pressure [Right Arm] 172/116 H Blood Pressure Mean 134 Blood Pressure Mean [Right Arm] 134 Blood Pressure Source [Right Arm] Automatic Cuff Blood Pressure Position [Right Arm] Sitting 02 Sat by Pulse Oximetry 96 96 Oxygen Delivery Method Room Air Room Air 05/26/25 19:00 05/26/25 20:19 05/26/25 21:13 Temperature Temperature Source Pulse Rate 79 72 75 Pulse Rate [Left] Respiratory Rate 16 16 Blood Pressure 156/93 H 147/99 H 147/99 H Blood Pressure [Right Arm] Blood Pressure Mean 120 Blood Pressure Mean [Right Arm] Blood Pressure Source [Right Arm] Blood Pressure Position [Right Arm] 02 Sat by Pulse Oximetry 96 96 98 Oxygen Delivery Method Room Air Room Air 05/26/25 21:15 Temperature 98.9 F Temperature Source Pulse Rate 75 Pulse Rate [Left] Respiratory Rate 16 Blood Pressure 147/99 H Blood Pressure [Right Arm] Blood Pressure Mean Blood Pressure Mean [Right Arm] Blood Pressure Source [Right Arm] Blood Pressure Position [Right Arm] 02 Sat by Pulse Oximetry Oxygen Delivery Method Room Air Lab Data Lab Results 05/26/25 18:50: Group A Strep Rapid Negative 05/26/25 19:42: WBC 11.8 H, RBC 5.11, Hgb 16.4, Hct 45.3, MCV 88.6, MCH 32.1 H, MCHC 36.2 H, RDW 12.1, Plt Count 192, MPV 11.2 H, Neut % (Auto) 57.7, Lymph % (Auto) 30.7, Sterling % (Auto) 8.6, Eos % (Auto) 1.9, Baso % (Auto) 0.8, Neut # (Auto) 6.8, Lymph # (Auto) 3.6, Sterling # (Auto) 1.0, Eos # (Auto) 0.2, Baso # (Auto) 0.1, Sodium 139, Potassium 4.0, Chloride 104, Carbon Dioxide 24, Anion Gap 15.0, BUN 13, Creatinine 0.90, Estimated Creat Clear 117, Estimated GFR 83, Est GFR ( Amer) 101, Glucose 237 H, Hemoglobin A1c 10.5 H, Calcium 9.5, Total Bilirubin 1.6 H, AST 45, ALT 40, Alkaline Phosphatase 83, Total Protein 7.4, Albumin 4.6, Globulin 2.8, Albumin/Globulin Ratio 1.6, Triglycerides 195 H, Cholesterol 153, LDL Cholesterol Direct 85.76 L, VLDL Cholesterol 39, HDL Cholesterol 34 L, Cholesterol/HDL Ratio 4.5 H, TSH 1.90, Free T4 1.12 05/26/25 19:42 05/26/25 19:42 Orders (Tests/Meds): ORDERS Category Date Time Status CBC w/Auto Diff [Complete Blood Count Auto Diff] Stat Lab 05/26/25 19:42 Completed CMP [Comprehensive Metabolic Panel] Stat Lab 05/26/25 19:42 Completed Free T4 (Free Thyroxine) Stat Lab 05/26/25 19:42 Completed Hemoglobin A1C Stat Lab 05/26/25 19:42 Completed Lipid Panel Stat Lab 05/26/25 19:42 Completed Strep Scrn Group A (Rapid) Stat Lab 05/26/25 18:50 Completed TSH [Thyroid Stimulating Hormone] Stat Lab 05/26/25 19:42 Completed Strep Screen Confirmation Stat Micro 05/26/25 18:50 Received Medical Decision Narrative: In summary, this is a 69-year-old male patient who is presenting to the emergency department today for evaluation of a sore throat. He seems to be anxious over the fact that he has had a tonsillar abscess in the past that did not necessitate drainage and was not diagnosed with CT scan but did improve with antibiotics. He thinks that this is the same thing that is occurring today. In addition to this the patient has multiple upcoming doctor appointments and he has asked if we can do a routine lab draw on him so that he can have laboratory data in hand when he attends these appointments. On initial evaluation of the patient they were resting comfortably in no acute distress and nontoxic in appearance. They are hemodynamically stable, saturating well room air, and are neurologically intact. On physical examination he is appropriately alert and interactive with a GCS of 15. Heart and lungs are clear to auscultation bilaterally. His tonsils are symmetric in appearance with no exudates. Superior to the left tonsil he does have an aphthous ulcer. he is uvula is midline. He has no oropharyngeal edema. He has no soft palatal petechiae. He is tolerating secretions well. He has no change in the quality of his voice from baseline according to family at the bedside Differential diagnosis includes viral pharyngitis, streptococcal pharyngitis, among others. I have considered the possibility of retropharyngeal and peritonsillar abscess but there is no asymmetry of the tonsillar pillars and his uvula is midline so this is highly unlikely. Additionally, with the aphthous ulcer present above the left tonsil this is likely a viral syndrome. The patient does not necessitate any labs or imaging for his workup in the emergency department today. However, due to his request to have a routine lab draw performed we will draw these labs for him and keep him here in the emergency department until his CBC and CMP results to ensure that he does not have any underlying electrolyte derangement, acute kidney injury, or actionable anemia that would keep him here in the emergency department. Labs did result and were interpreted by me. There is no actionable abnormality. The patient does have an elevated A1c at 10.5. Have asked him to follow-up with his primary care physician for further evaluation of this as he does have diabetes. Patient acknowledges understanding. Regarding his sore throat, I do feel that this is likely a viral syndrome given that he has an aphthous ulcer above the tonsils. I have given strict return precautions in the event that he experiences excessive drooling, dysphagia, dysphonia, or shortness of breath. At this time all questions been answered and all parties are agreeable with the decision to discharge home Critical Care Critical Care Time Critical Care Time: No
[2025-05-26 21:13] VITALS: BP 147/99; PULSE 75; RESP 16; O2SAT 98
[2025-05-26 21:15] VITALS: BP 147/99; PULSE 75; RESP 16; TEMP 37.2; O2SAT 98
== END 2025-05-26 21:40 | disposition home or self-care (01) ==
PROVIDERS: Emergency Provider Student in an Organized Health Care Education/Training Program
DX: J02.9 Acute pharyngitis, unspecified (principal); R73.09 Other abnormal glucose
CPT/HCPCS: 80053; 80061; 83036; 84439; 84443; 85025; 87430; 99284